=== PATIENT | female | born 1945 | race Caucasian/White ===

== ENCOUNTER 2018-05-06 13:07 | Inpatient (IN) ==
[2018-05-06] MEDS ORDERED: FUROSEMIDE 100 MG/10 ML VIAL IV STA (13:39)
[2018-05-06] MEDS ORDERED: ALBUTEROL/IPRATROPIUM 3 ML NEB RESP TX STA (13:39)
[2018-05-06] MEDS ORDERED: methylPREDNISolone SOD SUC 125 MG/2 ML VIAL IV STA (13:39)
[2018-05-06] MEDS ORDERED: ONDANSETRON 4 MG/2 ML VIAL IV STA (13:39)
[2018-05-06 14:34] LABS: Apearance,Urine CLEAR (Clear); Bacteria,Urine Occasional /HPF (Few); Bilirubin,Urine Negative (Negative); Blood, Urine Small mg/dL (Negative); Glucose,Urine (UA) >=500 mg/dL (Negative); Ketones,Urine Negative (Negative); Mucus,Urine Occasional /LPF (Occasional); Nitrite,Urine Negative (Negative); Protein,Urine Negative; RBC,Urine 1 /HPF (0-4); Squamous Epithelial Cell,Urine Occasional /HPF (0-10); Urine Color Straw (Yellow); Urine Specific Gravity 1.006 (1.001-1.035); Urine Urobilinogen < 2.0 EU/DL (0.2-1.0); WBC,Urine 1 /HPF (0-6)
[2018-05-06 14:47] LABS: Basophils # 0.1 10*3/uL (0.0-0.2); Basophils % 0.6 % (0.0-0.8); Eosinophils % 0.3 % (0.00-10.9); Hemoglobin 13.4 GM/DL (12.0-16.0); Immature Granulocytes % 0.5 %; Immature Granulocytes Absolute 0.06 #; Lymphocytes # 1.3 10*3/uL (1.4-4.0); Lymphocytes % 10.7 % (21.3-54.2); Mean Corpuscular HGB Conc 31.2 GM/DL (32-36); Mean Corpuscular Hemoglobin 28 PG (27-34); Mean Corpuscular Volume 88.5 FL (87-102); Mean Platelet Volume 8.6 FL (9.6-12.0); Monocytes # 0.7 10*3/uL (0.11-0.8); Monocytes % 5.7 % (1.7-12.7); Neutrophils # 10.1 10*3/uL (1.4-7.4); Neutrophils % 82.2 % (38.7-73.9); Platelet Count 304 T/CUMM (130-400); Red Blood Count 4.86 MC/CUMM (3.8-5.5); Red Cell Distribution Width 14.6 % (9.3-17.3); White Blood Count 12.4 T/CUMM (4-12)
[2018-05-06 14:54] LABS: INR 0.9; PT Patient Result 10.3 SECS
[2018-05-06 14:57] LABS: Allen Test Positive
[2018-05-06 14:58] LABS: ABG Base Excess -0.9 MMOL/L (-2.5-2.5); ABG HCO3 23.6 MMOL/L (20-26); ABG Oxygen Saturation 94.5 % (95-100); ABG PCO2 38.1 MM HG (35-48); ABG PO2 73.8 MM HG (80-95); ABG TCO2 20.5 MMOL/L (23-27)
[2018-05-06 15:13] LABS: Albumin 3.4 G/DL (3.4-5.0); Bilirubin,Total 0.8 MG/DL (0.2-1.0); Calcium 9.2 MG/DL (8.5-10.1); Osmolality,Calculated 278.8 MOS/KG (273-304); Potassium 4.3 MMOL/L (3.5-5.1); Total Protein 7.6 G/DL (6.4-8.3)
[2018-05-06] MEDS ORDERED: ENOXAPARIN 100 MG/ML SYRINGE SUBCUT STA (15:47)
[2018-05-06] MEDS ORDERED: MIDAZOLAM 2 MG/2 ML VIAL ONE (16:29)
[2018-05-06] MEDS ORDERED: HYDROmorphone 2 MG/1 ML VIAL ONE (16:29)
[2018-05-06] MEDS ORDERED: ALTEPLASE 6 MG in SODIUM CHLORIDE 0.9% 120 ML IV SCH (16:30)
[2018-05-06] MEDS ORDERED: HEPARIN/NACL 0.9% 2 UNITS/ML 500 ML IV ONE (16:37)
[2018-05-06] MEDS ORDERED: LIDOCAINE 1% 20 ML VIAL ONE (16:37)
[2018-05-06] MEDS ORDERED: MEPERIDINE 25 MG/1 ML VIAL IV PRN (17:07)
[2018-05-06] MEDS ORDERED: LORazepam 2 MG/1 ML VIAL IV PRN (17:07)
[2018-05-06] MEDS ORDERED: LABETALOL 20 MG/4 ML SYRINGE IV ONE (17:13)
[2018-05-06] MEDS ORDERED: SODIUM CHLORIDE 0.9% 1,000 ML IV SCH ×2 (17:30)
[2018-05-06] MEDS ORDERED: HEPARIN DRIP 25,000 UNITS/500 ML PREMIX IV SCH (17:30)
[2018-05-06] MEDS ORDERED: AMITRIPTYLINE 10 MG TABLET PO PRN (17:32)
[2018-05-06] MEDS ORDERED: DIPHENOXYLATE/ATROPINE 2.5-0.025 MG TABLET PO PRN (17:32)
[2018-05-06] MEDS ORDERED: DEXTROSE 50% 25 GM/50 ML SYRINGE IV PRN (17:32)
[2018-05-06] MEDS ORDERED: GLUCAGON 1 MG VIAL IM PRN (17:32)
[2018-05-06] MEDS ORDERED: ONDANSETRON 4 MG/2 ML VIAL IV PRN (17:32)
[2018-05-06] MEDS ORDERED: LOPERAMIDE 2 MG CAPSULE PO PRN (17:32)
[2018-05-06] MEDS ORDERED: POTASSIUM CHLORIDE 10 MEQ TABLET PO PRN (17:32)
[2018-05-06] MEDS ORDERED: FUROSEMIDE 40 MG TABLET PO PRN (17:32)
[2018-05-06] MEDS ORDERED: ACETAMINOPHEN 325 MG TABLET PO PRN (17:32)
[2018-05-06 17:40] LABS: Apearance,Urine CLEAR (Clear); Bilirubin,Urine Negative (Negative); Blood, Urine Small mg/dL (Negative); Glucose,Urine (UA) >=500 mg/dL (Negative); Ketones,Urine Negative (Negative); Nitrite,Urine Negative (Negative); Protein,Urine Negative; RBC,Urine 1 /HPF (0-4); Urine Color Colorless (Yellow); Urine Specific Gravity 1.009 (1.001-1.035); Urine Urobilinogen < 2.0 EU/DL (0.2-1.0); WBC,Urine 1 /HPF (0-6)
[2018-05-06] MEDS: INSULIN REGULAR 100 UNIT/ML SUBCUT SCH (19:01)
[2018-05-06] MEDS: ALBUTEROL/IPRATROPIUM 3 ML NEB RESP TX SCH ×2 (19:18→23:39)
[2018-05-06] MEDS: SODIUM CHLORIDE 0.9% 1,000 ML IV SCH (19:24)
[2018-05-06 19:31] LABS: PT Patient Result 10.7 SECS; Partial Thromboplastin Time 23.5 SECS (0-40)
[2018-05-06] MEDS ORDERED: ENOXAPARIN 40 MG/0.4 ML SYRINGE SUBCUT SCH (21:00)
[2018-05-06] MEDS: FLUTICASONE/SALMETEROL 250-50 DISKUS 14 DOSE INH SCH (21:24)
[2018-05-06] MEDS: CHOLECALCIFEROL 1,000 UNIT TABLET PO SCH (21:25)
[2018-05-06] MEDS: OMEGA 3 ACID ETHYL ESTERS 1 GM CAPSULE PO SCH (21:26)
[2018-05-06] MEDS: GABAPENTIN 300 MG CAPSULE PO SCH (21:26)
[2018-05-06] MEDS: ATORVASTATIN 20 MG TABLET PO SCH (21:26)
[2018-05-06] MEDS: metFORMIN 500 MG TABLET PO SCH (21:26)
[2018-05-06] MEDS: MAGNESIUM CHLORIDE 64 MG TABLET PO SCH (21:26)
[2018-05-06] MEDS: DOCUSATE SODIUM 100 MG CAPSULE PO SCH (21:27)
[2018-05-07] MEDS: MORPHINE 4 MG/1 ML VIAL IV PRN ×2 (00:55→05:08)
[2018-05-07] MEDS: INSULIN REGULAR 100 UNIT/ML SUBCUT SCH ×4 (01:05→17:35)
[2018-05-07] MEDS: ALBUTEROL/IPRATROPIUM 3 ML NEB RESP TX SCH ×6 (02:50→22:49)
[2018-05-07 05:54] LABS: Basophils % 0.1 % (0.0-0.8); Immature Granulocytes % 0.6 %; Immature Granulocytes Absolute 0.07 #; Lymphocytes # 0.6 10*3/uL (1.4-4.0); Lymphocytes % 5.5 % (21.3-54.2); Mean Corpuscular HGB Conc 30.8 GM/DL (32-36); Mean Corpuscular Hemoglobin 27 PG (27-34); Mean Platelet Volume 9.1 FL (9.6-12.0); Monocytes # 0.5 10*3/uL (0.11-0.8); Monocytes % 4.8 % (1.7-12.7); Neutrophils # 9.6 10*3/uL (1.4-7.4); Platelet Count 303 T/CUMM (130-400); Red Blood Count 4.43 MC/CUMM (3.8-5.5); Red Cell Distribution Width 14.5 % (9.3-17.3); White Blood Count 10.8 T/CUMM (4-12)
[2018-05-07 05:57] LABS: PT Patient Result 10.9 SECS
[2018-05-07 06:07] LABS: Alanine Aminotransferase 22 U/L (13-56); Albumin 2.8 G/DL (3.4-5.0); Alkaline Phosphatase 69 U/L (45-117); Aspartate Amino Transferase 14 U/L (0-37); Bilirubin,Total < 0.39 MG/DL (0.2-1.0); Blood Urea Nitrogen 23 MG/DL (7-18); Calcium 8.1 MG/DL (8.5-10.1); Cholesterol 160 MG/DL (50-200); Glucose 225 MG/DL (74-106); HDL Cholesterol 56 MG/DL (40-60); Osmolality,Calculated 289.4 MOS/KG (273-304); Potassium 3.8 MMOL/L (3.5-5.1); Risk Ratio 2.86; Sodium 140 MMOL/L (136-145); Total Protein 6.7 G/DL (6.4-8.3); Triglycerides 110 MG/DL (2-150)
[2018-05-07] MEDS: LEVOTHYROXINE 25 MCG TABLET PO SCH (06:18)
[2018-05-07] MEDS: IPRATROPIUM 500 MCG/2.5 ML NEB RESP TX SCH ×4 (09:42→19:59)
[2018-05-07] MEDS ORDERED: HYDROmorphone 2 MG/1 ML VIAL IV ONE ×2 (09:52→10:11)
[2018-05-07] MEDS ORDERED: HYDROmorphone 2 MG/1 ML VIAL ONE (09:55)
[2018-05-07] MEDS: SODIUM CHLORIDE 0.9% 1,000 ML IV SCH (10:19)
[2018-05-07] MEDS: MAGNESIUM CHLORIDE 64 MG TABLET PO SCH ×2 (10:54→21:10)
[2018-05-07] MEDS: CALCIUM (CARBONATE)/VITAMIN D 600 MG-400 UNIT TABLET PO SCH (10:54)
[2018-05-07] MEDS: CYANOCOBALAMIN 500 MCG TABLET PO SCH (10:54)
[2018-05-07] MEDS: DOCUSATE SODIUM 100 MG CAPSULE PO SCH ×2 (10:55→21:09)
[2018-05-07] MEDS: predniSONE 10 MG TABLET PO SCH (10:55)
[2018-05-07] MEDS: GABAPENTIN 300 MG CAPSULE PO SCH ×2 (10:55→21:10)
[2018-05-07] MEDS: OMEGA 3 ACID ETHYL ESTERS 1 GM CAPSULE PO SCH ×3 (10:55→21:10)
[2018-05-07] MEDS: PANTOPRAZOLE 40 MG VIAL IV SCH (10:56)
[2018-05-07] MEDS: FLUTICASONE/SALMETEROL 250-50 DISKUS 14 DOSE INH SCH ×2 (10:57→21:08)
[2018-05-07] MEDS: APIXABAN 5 MG TABLET PO SCH ×2 (11:07→21:09)
[2018-05-07] MEDS: DAPAGLIFLOZIN PROPANEDIOL 5 MG PO SCH (11:11)
[2018-05-07] MEDS: CHOLECALCIFEROL 1,000 UNIT TABLET PO SCH ×2 (11:12→21:11)
[2018-05-07] MEDS: amLODIPine 5 MG TABLET PO SCH (16:00)
[2018-05-07] MEDS: FUROSEMIDE 40 MG TABLET PO SCH (16:00)
[2018-05-07 18:42] LABS: Partial Thromboplastin Time 25.9 SECS (0-40)
[2018-05-07] MEDS: metFORMIN 500 MG TABLET PO SCH (21:09)
[2018-05-08] MEDS: INSULIN REGULAR 100 UNIT/ML SUBCUT SCH ×4 (00:35→19:38)
[2018-05-08] MEDS: ALBUTEROL/IPRATROPIUM 3 ML NEB RESP TX SCH ×6 (02:23→23:29)
[2018-05-08 05:26] LABS: Calcium 7.7 MG/DL (8.5-10.1); Potassium 3.4 MMOL/L (3.5-5.1)
[2018-05-08] MEDS: LEVOTHYROXINE 25 MCG TABLET PO SCH (06:19)
[2018-05-08] MEDS: IPRATROPIUM 500 MCG/2.5 ML NEB RESP TX SCH ×3 (07:21→15:32)
[2018-05-08] MEDS ORDERED: OXYMETAZOLINE 0.05% NASAL SPRAY 15 ML BOTTLE BOTH NARES PRN (08:22)
[2018-05-08] MEDS ORDERED: POTASSIUM CHLORIDE 20 MEQ TABLET PO ONE (08:43)
[2018-05-08] MEDS ORDERED: MAGNESIUM HYDROXIDE SUSP 30 ML UDCUP PO ONE (10:07)
[2018-05-08] MEDS: amLODIPine 5 MG TABLET PO SCH (10:21)
[2018-05-08] MEDS: predniSONE 10 MG TABLET PO SCH (10:21)
[2018-05-08] MEDS: APIXABAN 5 MG TABLET PO SCH ×2 (10:21→21:45)
[2018-05-08] MEDS: GABAPENTIN 300 MG CAPSULE PO SCH ×2 (10:21→21:46)
[2018-05-08] MEDS: FUROSEMIDE 40 MG TABLET PO SCH (10:22)
[2018-05-08] MEDS: CALCIUM (CARBONATE)/VITAMIN D 600 MG-400 UNIT TABLET PO SCH (10:22)
[2018-05-08] MEDS: OMEGA 3 ACID ETHYL ESTERS 1 GM CAPSULE PO SCH ×3 (10:22→21:46)
[2018-05-08] MEDS: CYANOCOBALAMIN 500 MCG TABLET PO SCH (10:23)
[2018-05-08] MEDS: DOCUSATE SODIUM 100 MG CAPSULE PO SCH ×2 (10:23→21:46)
[2018-05-08] MEDS: MAGNESIUM CHLORIDE 64 MG TABLET PO SCH ×2 (10:23→21:45)
[2018-05-08] MEDS: PANTOPRAZOLE 40 MG VIAL IV SCH (10:24)
[2018-05-08] MEDS: FLUTICASONE 50 MCG NASAL SPRAY 16 GM BOTTLE BOTH NARES SCH (10:28)
[2018-05-08] MEDS: FLUTICASONE/SALMETEROL 250-50 DISKUS 14 DOSE INH SCH ×2 (10:28→21:44)
[2018-05-08] MEDS: CHOLECALCIFEROL 1,000 UNIT TABLET PO SCH ×2 (10:45→21:46)
[2018-05-08] MEDS: METOPROLOL TARTRATE 25 MG TABLET PO SCH ×2 (11:39→21:45)
[2018-05-08] MEDS ORDERED: CLORAZEPATE 3.75 MG TABLET PO PRN (12:55)
[2018-05-08 18:13] LABS: Partial Thromboplastin Time 26.4 SECS (0-40)
[2018-05-08] MEDS: metFORMIN 500 MG TABLET PO SCH (21:44)
[2018-05-08] MEDS: ATORVASTATIN 20 MG TABLET PO SCH (21:46)
[2018-05-08] MEDS: AMITRIPTYLINE 10 MG TABLET PO SCH (21:47)
[2018-05-08] MEDS: CYCLOBENZAPRINE 10 MG TABLET PO SCH (21:47)
[2018-05-09] MEDS: INSULIN REGULAR 100 UNIT/ML SUBCUT SCH ×4 (00:44→17:45)
[2018-05-09] MEDS: ALBUTEROL/IPRATROPIUM 3 ML NEB RESP TX SCH ×6 (03:01→23:55)
[2018-05-09 06:04] LABS: Partial Thromboplastin Time 26.4 SECS (0-40)
[2018-05-09 06:07] LABS: Calcium 8.7 MG/DL (8.5-10.1); Potassium 3.8 MMOL/L (3.5-5.1)
[2018-05-09] MEDS: LEVOTHYROXINE 25 MCG TABLET PO SCH (06:07)
[2018-05-09] MEDS: predniSONE 10 MG TABLET PO SCH (09:44)
[2018-05-09] MEDS: PANTOPRAZOLE 40 MG VIAL IV SCH (09:44)
[2018-05-09] MEDS: CHOLECALCIFEROL 1,000 UNIT TABLET PO SCH ×2 (09:44→20:52)
[2018-05-09] MEDS: CYANOCOBALAMIN 500 MCG TABLET PO SCH (09:44)
[2018-05-09] MEDS: CALCIUM (CARBONATE)/VITAMIN D 600 MG-400 UNIT TABLET PO SCH (09:44)
[2018-05-09] MEDS: OMEGA 3 ACID ETHYL ESTERS 1 GM CAPSULE PO SCH ×3 (09:45→20:53)
[2018-05-09] MEDS: MAGNESIUM CHLORIDE 64 MG TABLET PO SCH ×2 (09:45→20:52)
[2018-05-09] MEDS: DOCUSATE SODIUM 100 MG CAPSULE PO SCH ×2 (09:46→20:52)
[2018-05-09] MEDS: METOPROLOL TARTRATE 25 MG TABLET PO SCH ×2 (09:46→20:52)
[2018-05-09] MEDS: APIXABAN 5 MG TABLET PO SCH ×2 (09:47→20:53)
[2018-05-09] MEDS: FUROSEMIDE 40 MG TABLET PO SCH (09:47)
[2018-05-09] MEDS: GABAPENTIN 300 MG CAPSULE PO SCH ×2 (09:47→20:53)
[2018-05-09] MEDS: CYCLOBENZAPRINE 10 MG TABLET PO SCH ×2 (09:47→20:52)
[2018-05-09] MEDS: amLODIPine 5 MG TABLET PO SCH (09:47)
[2018-05-09] MEDS: FLUTICASONE/SALMETEROL 250-50 DISKUS 14 DOSE INH SCH ×2 (09:48→20:56)
[2018-05-09] MEDS: FLUTICASONE 50 MCG NASAL SPRAY 16 GM BOTTLE BOTH NARES SCH (09:48)
[2018-05-09] MEDS: AZELASTINE NASAL 137 MCG/SPRAY 30 ML BOTTLE BOTH NARES SCH ×2 (09:49→20:58)
[2018-05-09] MEDS: DAPAGLIFLOZIN PROPANEDIOL 5 MG PO SCH (12:20)
[2018-05-09 18:02] LABS: Partial Thromboplastin Time 26.3 SECS (0-40)
[2018-05-09] MEDS: metFORMIN 500 MG TABLET PO SCH (20:52)
[2018-05-10] MEDS: INSULIN REGULAR 100 UNIT/ML SUBCUT SCH ×2 (01:58→06:14)
[2018-05-10] MEDS: AMITRIPTYLINE 10 MG TABLET PO SCH (04:48)
[2018-05-10] MEDS: ALBUTEROL/IPRATROPIUM 3 ML NEB RESP TX SCH ×3 (05:11→11:19)
[2018-05-10] MEDS: LEVOTHYROXINE 25 MCG TABLET PO SCH (06:15)
[2018-05-10] MEDS: METOPROLOL TARTRATE 25 MG TABLET PO SCH (09:06)
[2018-05-10] MEDS: CYCLOBENZAPRINE 10 MG TABLET PO SCH (09:07)
[2018-05-10] MEDS: PANTOPRAZOLE 40 MG VIAL IV SCH (09:08)
[2018-05-10] MEDS: OMEGA 3 ACID ETHYL ESTERS 1 GM CAPSULE PO SCH (09:08)
[2018-05-10] MEDS: CALCIUM (CARBONATE)/VITAMIN D 600 MG-400 UNIT TABLET PO SCH (09:08)
[2018-05-10] MEDS: FUROSEMIDE 40 MG TABLET PO SCH (09:09)
[2018-05-10] MEDS: MAGNESIUM CHLORIDE 64 MG TABLET PO SCH (09:09)
[2018-05-10] MEDS: CYANOCOBALAMIN 500 MCG TABLET PO SCH (09:09)
[2018-05-10] MEDS: GABAPENTIN 300 MG CAPSULE PO SCH (09:10)
[2018-05-10] MEDS: DOCUSATE SODIUM 100 MG CAPSULE PO SCH (09:10)
[2018-05-10] MEDS: APIXABAN 5 MG TABLET PO SCH (09:10)
[2018-05-10] MEDS: FLUTICASONE/SALMETEROL 250-50 DISKUS 14 DOSE INH SCH (09:11)
[2018-05-10] MEDS: amLODIPine 5 MG TABLET PO SCH (09:11)
[2018-05-10] MEDS: AZELASTINE NASAL 137 MCG/SPRAY 30 ML BOTTLE BOTH NARES SCH (09:11)
[2018-05-10] MEDS: FLUTICASONE 50 MCG NASAL SPRAY 16 GM BOTTLE BOTH NARES SCH (09:11)
[2018-05-10] MEDS: DAPAGLIFLOZIN PROPANEDIOL 5 MG PO SCH (09:11)
[2018-05-10] MEDS: predniSONE 10 MG TABLET PO SCH (09:12)
[2018-05-10] MEDS: CHOLECALCIFEROL 1,000 UNIT TABLET PO SCH (09:12)
[2018-05-10 12:12] VITALS: BP 105/63
== END 2018-05-10 12:25 | disposition home health service (06) | DRG 176 ==
LOC: EDUNIT# → EDBD → N.ED 13:07 → N.EDINP 15:49 → N.CC 16:28 → N.TELEN 05-08 13:56
PROVIDERS: ADMIT Family Medicine; ATTEND Family Medicine

== ENCOUNTER 2018-09-09 12:18 | Inpatient (IN) ==
[2018-09-09] MEDS ORDERED: ONDANSETRON 4 MG/2 ML VIAL IV PRN (12:19)
[2018-09-09] MEDS ORDERED: DEXTROSE 50% 25 GM/50 ML VIAL IV PRN (12:19)
[2018-09-09] MEDS ORDERED: GLUCAGON 1 MG VIAL IM PRN (12:19)
[2018-09-09 13:35] LABS: Basophils # 0.1 10*3/uL (0.0-0.2); Basophils % 0.4 % (0.0-0.8); Eosinophils % 0.2 % (0.00-10.9); Hematocrit 39.5 VOL% (35.7-47.0); Hemoglobin 12.2 GM/DL (12.0-16.0); Immature Granulocytes Absolute 0.13 #; Lymphocytes % 7.4 % (21.3-54.2); Mean Corpuscular HGB Conc 30.9 GM/DL (32-36); Mean Corpuscular Hemoglobin 27 PG (27-34); Mean Corpuscular Volume 86.1 FL (87-102); Mean Platelet Volume 8.6 FL (9.6-12.0); Monocytes % 7.5 % (1.7-12.7); Neutrophils # 10.8 10*3/uL (1.4-7.4); Neutrophils % 83.5 % (38.7-73.9); Platelet Count 361 T/CUMM (130-400); Red Blood Count 4.59 MC/CUMM (3.8-5.5); Red Cell Distribution Width 16.4 % (9.3-17.3); White Blood Count 12.9 T/CUMM (4-12)
[2018-09-09 14:11] LABS: Albumin 3.1 G/DL (3.4-5.0); Bilirubin,Total 0.4 MG/DL (0.2-1.0); Calcium 8.8 MG/DL (8.5-10.1); Osmolality,Calculated 277.2 MOS/KG (273-304); Potassium 3.7 MMOL/L (3.5-5.1); Total Protein 7.4 G/DL (6.4-8.3)
[2018-09-09] MEDS: ALBUTEROL/IPRATROPIUM 3 ML NEB RESP TX SCH ×2 (15:15→18:57)
[2018-09-09] MEDS: methylPREDNISolone SOD SUC 40 MG/1 ML VIAL IV SCH (15:45)
[2018-09-09] MEDS ORDERED: ALBUTEROL/IPRATROPIUM 3 ML NEB RESP TX PRN (17:10)
[2018-09-09] MEDS: INSULIN REGULAR 100 UNIT/ML SUBCUT SCH ×2 (19:07→21:22)
[2018-09-09] MEDS: cefTRIAXone 1,000 MG in SYRINGE 1 EACH IV SCH (19:35)
[2018-09-09] MEDS ORDERED: AZELASTINE NASAL 137 MCG/SPRAY 30 ML BOTTLE BOTH NARES PRN (19:51)
[2018-09-09] MEDS ORDERED: POTASSIUM CHLORIDE 10 MEQ TABLET PO PRN (19:51)
[2018-09-09] MEDS ORDERED: AMITRIPTYLINE 10 MG TABLET PO PRN (19:51)
[2018-09-09] MEDS ORDERED: FUROSEMIDE 40 MG TABLET PO PRN (19:51)
[2018-09-09] MEDS ORDERED: DIPHENOXYLATE/ATROPINE 2.5-0.025 MG TABLET PO PRN (19:51)
[2018-09-09] MEDS: MONTELUKAST 10 MG TABLET PO SCH (20:50)
[2018-09-09] MEDS: MAGNESIUM CHLORIDE 64 MG TABLET PO SCH (20:50)
[2018-09-09] MEDS: DICLOFENAC 1.3% PATCH 5/PACK TRANSDERM SCH (20:50)
[2018-09-09] MEDS: metFORMIN 500 MG TABLET PO SCH (20:50)
[2018-09-09] MEDS: OMEGA 3 ACID ETHYL ESTERS 1 GM CAPSULE PO SCH (20:51)
[2018-09-09] MEDS: APIXABAN 5 MG TABLET PO SCH (20:51)
[2018-09-09] MEDS: CHOLECALCIFEROL 1,000 UNIT TABLET PO SCH (20:51)
[2018-09-09] MEDS: GABAPENTIN 300 MG CAPSULE PO SCH (20:51)
[2018-09-09] MEDS: DOCUSATE SODIUM 100 MG CAPSULE PO SCH (20:52)
[2018-09-09] MEDS: SODIUM CHLORIDE 0.9% 1,000 ML IV SCH (21:23)
[2018-09-10] MEDS: methylPREDNISolone SOD SUC 40 MG/1 ML VIAL IV SCH ×3 (01:01→23:49)
[2018-09-10] MEDS: ALBUTEROL/IPRATROPIUM 3 ML NEB RESP TX SCH ×4 (01:28→20:28)
[2018-09-10 05:07] LABS: Basophils % 0.2 % (0.0-0.8); Hematocrit 36.2 VOL% (35.7-47.0); Immature Granulocytes % 0.8 %; Immature Granulocytes Absolute 0.08 #; Lymphocytes # 0.7 10*3/uL (1.4-4.0); Lymphocytes % 6.6 % (21.3-54.2); Mean Corpuscular HGB Conc 30.4 GM/DL (32-36); Mean Corpuscular Hemoglobin 26 PG (27-34); Mean Corpuscular Volume 86.8 FL (87-102); Mean Platelet Volume 8.7 FL (9.6-12.0); Monocytes # 0.4 10*3/uL (0.11-0.8); Monocytes % 3.8 % (1.7-12.7); Neutrophils # 9.2 10*3/uL (1.4-7.4); Neutrophils % 88.6 % (38.7-73.9); Platelet Count 349 T/CUMM (130-400); Red Blood Count 4.17 MC/CUMM (3.8-5.5); White Blood Count 10.4 T/CUMM (4-12)
[2018-09-10 05:30] LABS: Calcium 8.5 MG/DL (8.5-10.1); Osmolality,Calculated 285.7 MOS/KG (273-304); Potassium 4.2 MMOL/L (3.5-5.1)
[2018-09-10 05:39] LABS: Free T4 (Free Thyroxine) 0.96 NG/DL (0.76-1.46); Thyroid Stimulating Hormone 0.468 uIU/ml (0.358-3.74)
[2018-09-10] MEDS: LEVOTHYROXINE 25 MCG TABLET PO SCH (06:20)
[2018-09-10] MEDS: INSULIN REGULAR 100 UNIT/ML SUBCUT SCH ×4 (08:18→21:12)
[2018-09-10] MEDS: MAGNESIUM CHLORIDE 64 MG TABLET PO SCH ×2 (08:18→21:11)
[2018-09-10] MEDS: CALCIUM (CARBONATE)/VITAMIN D 600 MG-400 UNIT TABLET PO SCH (08:18)
[2018-09-10] MEDS: PANTOPRAZOLE 40 MG TABLET PO SCH (08:19)
[2018-09-10] MEDS: GABAPENTIN 300 MG CAPSULE PO SCH ×2 (08:19→21:11)
[2018-09-10] MEDS: OMEGA 3 ACID ETHYL ESTERS 1 GM CAPSULE PO SCH ×3 (08:19→21:11)
[2018-09-10] MEDS: LACTOBACILLUS ACIDOPHILUS/BULGARICUS CAPLET PO SCH (08:19)
[2018-09-10] MEDS: MONTELUKAST 10 MG TABLET PO SCH ×2 (08:19→21:11)
[2018-09-10] MEDS: DOCUSATE SODIUM 100 MG CAPSULE PO SCH ×2 (08:19→21:13)
[2018-09-10] MEDS: CHOLECALCIFEROL 1,000 UNIT TABLET PO SCH ×2 (08:19→21:11)
[2018-09-10] MEDS: APIXABAN 5 MG TABLET PO SCH ×2 (08:19→21:12)
[2018-09-10] MEDS ORDERED: NON-FORMULARY MEDICATION (Tiotropium Inhalation 18 MCG) INH SCH (09:00)
[2018-09-10] MEDS: metFORMIN 500 MG TABLET PO SCH ×2 (10:20→21:12)
[2018-09-10] MEDS: FLUTICASONE/SALMETEROL 250-50 DISKUS 14 DOSE INH SCH (10:20)
[2018-09-10 10:21] LABS: Apearance,Urine CLEAR (Clear); Bilirubin,Urine Negative (Negative); Blood, Urine Small mg/dL (Negative); Glucose,Urine (UA) >=500 mg/dL (Negative); Ketones,Urine Negative (Negative); Nitrite,Urine Negative (Negative); Protein,Urine Negative; RBC,Urine 1 /HPF (0-4); Urine Color Straw (Yellow); Urine Specific Gravity 1.012 (1.001-1.035); Urine Urobilinogen < 2.0 EU/DL (0.2-1.0); WBC,Urine 1 /HPF (0-6)
[2018-09-10] MEDS: DEXTROMETHORPHAN ER 6 MG/ML 90 ML/BOTTLE PO PRN ×2 (10:21→21:15)
[2018-09-10] MEDS: DICLOFENAC 1.3% PATCH 5/PACK TRANSDERM SCH ×2 (10:21→21:13)
[2018-09-10] MEDS: cefTRIAXone 1,000 MG in SYRINGE 1 EACH IV SCH (18:16)
[2018-09-10] MEDS ORDERED: BENZOCAINE/MENTHOL LOZENGE 18/BOX PO PRN (18:16)
[2018-09-10] MEDS: ACETAMINOPHEN 325 MG TABLET PO PRN (21:10)
[2018-09-11] MEDS: SODIUM CHLORIDE 0.9% 1,000 ML IV SCH ×2 (01:00→12:43)
[2018-09-11] MEDS: ALBUTEROL/IPRATROPIUM 3 ML NEB RESP TX SCH ×4 (01:38→19:36)
[2018-09-11] MEDS: DEXTROMETHORPHAN ER 6 MG/ML 90 ML/BOTTLE PO PRN (03:01)
[2018-09-11] MEDS: LEVOTHYROXINE 25 MCG TABLET PO SCH (05:41)
[2018-09-11] MEDS: DOCUSATE SODIUM 100 MG CAPSULE PO SCH ×2 (08:49→21:02)
[2018-09-11] MEDS: DICLOFENAC 1.3% PATCH 5/PACK TRANSDERM SCH ×2 (08:49→21:02)
[2018-09-11] MEDS: PANTOPRAZOLE 40 MG TABLET PO SCH (08:53)
[2018-09-11] MEDS: LACTOBACILLUS ACIDOPHILUS/BULGARICUS CAPLET PO SCH (08:53)
[2018-09-11] MEDS: MONTELUKAST 10 MG TABLET PO SCH ×2 (08:53→20:48)
[2018-09-11] MEDS: MAGNESIUM CHLORIDE 64 MG TABLET PO SCH ×2 (08:53→20:48)
[2018-09-11] MEDS: APIXABAN 5 MG TABLET PO SCH ×2 (08:53→20:48)
[2018-09-11] MEDS: GABAPENTIN 300 MG CAPSULE PO SCH ×2 (08:53→20:49)
[2018-09-11] MEDS: CHOLECALCIFEROL 1,000 UNIT TABLET PO SCH ×2 (08:53→20:58)
[2018-09-11] MEDS: OMEGA 3 ACID ETHYL ESTERS 1 GM CAPSULE PO SCH ×3 (08:53→20:49)
[2018-09-11] MEDS: FLUTICASONE/SALMETEROL 250-50 DISKUS 14 DOSE INH SCH (08:54)
[2018-09-11] MEDS: INSULIN REGULAR 100 UNIT/ML SUBCUT SCH ×4 (08:54→20:59)
[2018-09-11] MEDS: LORATADINE 10 MG TABLET PO SCH (08:54)
[2018-09-11] MEDS: metFORMIN 500 MG TABLET PO SCH ×2 (08:54→20:49)
[2018-09-11] MEDS: CALCIUM (CARBONATE)/VITAMIN D 600 MG-400 UNIT TABLET PO SCH (08:55)
[2018-09-11] MEDS ORDERED: ATORVASTATIN 20 MG TABLET PO SCH (09:00)
[2018-09-11] MEDS: ACETAMINOPHEN 325 MG TABLET PO PRN ×2 (09:12→20:50)
[2018-09-11] MEDS: INSULIN GLARGINE 100 UNIT/ML SUBCUT SCH (10:45)
[2018-09-11] MEDS: methylPREDNISolone SOD SUC 40 MG/1 ML VIAL IV SCH (12:42)
[2018-09-11] MEDS: cefTRIAXone 1,000 MG in SYRINGE 1 EACH IV SCH (16:31)
[2018-09-12] MEDS: methylPREDNISolone SOD SUC 40 MG/1 ML VIAL IV SCH (00:27)
[2018-09-12] MEDS: ALBUTEROL/IPRATROPIUM 3 ML NEB RESP TX SCH ×2 (00:49→08:01)
[2018-09-12] MEDS: LEVOTHYROXINE 25 MCG TABLET PO SCH (06:23)
[2018-09-12 08:50] VITALS: BP 154/109
[2018-09-12] MEDS: INSULIN REGULAR 100 UNIT/ML SUBCUT SCH (08:52)
[2018-09-12] MEDS: INSULIN GLARGINE 100 UNIT/ML SUBCUT SCH (08:52)
[2018-09-12] MEDS: PANTOPRAZOLE 40 MG TABLET PO SCH (08:53)
[2018-09-12] MEDS: LORATADINE 10 MG TABLET PO SCH (08:53)
[2018-09-12] MEDS: MAGNESIUM CHLORIDE 64 MG TABLET PO SCH (08:53)
[2018-09-12] MEDS: metFORMIN 500 MG TABLET PO SCH (08:53)
[2018-09-12] MEDS: MONTELUKAST 10 MG TABLET PO SCH (08:53)
[2018-09-12] MEDS: CHOLECALCIFEROL 1,000 UNIT TABLET PO SCH (08:53)
[2018-09-12] MEDS: OMEGA 3 ACID ETHYL ESTERS 1 GM CAPSULE PO SCH (08:53)
[2018-09-12] MEDS: LACTOBACILLUS ACIDOPHILUS/BULGARICUS CAPLET PO SCH (08:53)
[2018-09-12] MEDS: DICLOFENAC 1.3% PATCH 5/PACK TRANSDERM SCH (08:54)
[2018-09-12] MEDS: APIXABAN 5 MG TABLET PO SCH (08:54)
[2018-09-12] MEDS: CALCIUM (CARBONATE)/VITAMIN D 600 MG-400 UNIT TABLET PO SCH (08:54)
[2018-09-12] MEDS: DOCUSATE SODIUM 100 MG CAPSULE PO SCH (08:54)
[2018-09-12] MEDS: GABAPENTIN 300 MG CAPSULE PO SCH (08:54)
[2018-09-12] MEDS: FLUTICASONE/SALMETEROL 250-50 DISKUS 14 DOSE INH SCH (08:54)
== END 2018-09-12 10:45 | disposition home or self-care (01) | DRG 202 ==
LOC: N.5E 12:38
PROVIDERS: ADMIT Family Medicine; ATTEND Family Medicine

== ENCOUNTER 2019-01-03 13:03 | Inpatient (IN) ==
[2019-01-03] MEDS ORDERED: FUROSEMIDE 40 MG/4 ML VIAL IV STA (13:37)
[2019-01-03 13:53] LABS: Basophils % 0.5 % (0.0-0.8); Eosinophils % 0.2 % (0.00-10.9); Hemoglobin 11.6 GM/DL (12.0-16.0); Immature Granulocytes % 0.3 %; Immature Granulocytes Absolute 0.03 #; Lymphocytes # 0.9 10*3/uL (1.4-4.0); Mean Corpuscular HGB Conc 30.5 GM/DL (32-36); Mean Corpuscular Volume 89.2 FL (87-102); Mean Platelet Volume 8.4 FL (9.6-12.0); Monocytes % 4.1 % (1.7-12.7); Neutrophils % 83.9 % (38.7-73.9); Platelet Count 320 T/CUMM (130-400); Red Blood Count 4.26 MC/CUMM (3.8-5.5); Red Cell Distribution Width 14.6 % (9.3-17.3); White Blood Count 8.6 T/CUMM (4-12)
[2019-01-03] MEDS: ALBUTEROL 2.5 MG/3 ML NEB RESP TX SCH (14:15)
[2019-01-03 14:16] LABS: Alanine Aminotransferase 34 U/L (13-56); Albumin 3.3 G/DL (3.4-5.0); Alkaline Phosphatase 60 U/L (45-117); Aspartate Amino Transferase 24 U/L (0-37); Bilirubin,Total < 0.39 MG/DL (0.2-1.0); Blood Urea Nitrogen 27 MG/DL (7-18); Glucose 229 MG/DL (74-106); Osmolality,Calculated 288.5 MOS/KG (273-304); Total Protein 6.6 G/DL (6.4-8.3)
[2019-01-03 14:44] LABS: Apearance,Urine CLEAR (Clear); Bilirubin,Urine Negative (Negative); Blood, Urine Small mg/dL (Negative); Glucose,Urine (UA) 50 mg/dL (Negative); Hyaline Casts,Urine 4 /LPF (0-3); Ketones,Urine Negative (Negative); Nitrite,Urine Negative (Negative); Protein,Urine Negative; RBC,Urine <1 /HPF (0-4); Squamous Epithelial Cell,Urine Occasional /HPF (0-10); Urine Color Yellow (Yellow); Urine Specific Gravity 1.012 (1.001-1.035); Urine Urobilinogen < 2.0 EU/DL (0.2-1.0)
[2019-01-03] MEDS ORDERED: SODIUM CHLORIDE 0.9% 500 ML IV STA (15:41)
[2019-01-03] MEDS ORDERED: LEVOFLOXACIN INJ 500 MG in PREMIX 1 EACH IV STA (16:20)
[2019-01-03] MEDS ORDERED: MORPHINE 4 MG/1 ML VIAL IV PRN (16:22)
[2019-01-03] MEDS ORDERED: ACETAMINOPHEN 325 MG TABLET PO PRN (16:22)
[2019-01-03] MEDS ORDERED: ONDANSETRON 4 MG/2 ML VIAL IV PRN (16:22)
[2019-01-03] MEDS ORDERED: SODIUM CHLORIDE 0.9% 1,000 ML IV STA (17:34)
[2019-01-03] MEDS ORDERED: CLORAZEPATE 3.75 MG TABLET PO PRN (18:10)
[2019-01-03] MEDS ORDERED: ALBUTEROL 2.5 MG/3 ML NEB RESP TX PRN (18:10)
[2019-01-03] MEDS ORDERED: ATORVASTATIN 20 MG TABLET PO SCH (18:10)
[2019-01-03] MEDS ORDERED: ALBUTEROL 2.5 MG/3 ML NEB RESP TX SCH (19:00)
[2019-01-03] MEDS ORDERED: GLUCAGON 1 MG VIAL IM PRN (19:15)
[2019-01-03] MEDS ORDERED: DEXTROSE 50% 25 GM/50 ML VIAL IV PRN (19:15)
[2019-01-03] MEDS: SODIUM CHLORIDE 0.9% 1,000 ML IV SCH (19:21)
[2019-01-03] MEDS: INSULIN REGULAR 100 UNIT/ML SUBCUT SCH (22:04)
[2019-01-03] MEDS: CHOLECALCIFEROL 1,000 UNIT TABLET PO SCH (22:06)
[2019-01-03] MEDS: METOPROLOL TARTRATE 25 MG TABLET PO SCH (22:06)
[2019-01-03] MEDS: MAGNESIUM CHLORIDE 64 MG TABLET PO SCH (22:06)
[2019-01-03] MEDS: GABAPENTIN 300 MG CAPSULE PO SCH (22:07)
[2019-01-03] MEDS: OMEGA 3 ACID ETHYL ESTERS 1 GM CAPSULE PO SCH (22:07)
[2019-01-03] MEDS: POLYCARBOPHIL 625 MG TABLET PO SCH (22:07)
[2019-01-03] MEDS: CALCIUM (CARBONATE)/VITAMIN D 600 MG-400 UNIT TABLET PO SCH (22:07)
[2019-01-03] MEDS: ALLOPURINOL 100 MG TABLET PO SCH (22:08)
[2019-01-03] MEDS: DOCUSATE SODIUM 100 MG CAPSULE PO SCH (22:08)
[2019-01-03] MEDS: APIXABAN 2.5 MG TABLET PO SCH (22:08)
[2019-01-03] MEDS: ALPRAZolam 0.25 MG TABLET PO SCH (22:11)
[2019-01-04] MEDS: ALBUTEROL/IPRATROPIUM 3 ML NEB RESP TX SCH ×4 (00:45→18:49)
[2019-01-04 01:06] LABS: Basophils % 0.5 % (0.0-0.8); Eosinophils # 0.1 10*3/uL (0.0-0.87); Eosinophils % 0.7 % (0.00-10.9); Hematocrit 34.1 VOL% (35.7-47.0); Hemoglobin 10.7 GM/DL (12.0-16.0); Immature Granulocytes % 0.4 %; Immature Granulocytes Absolute 0.03 #; Lymphocytes # 1.5 10*3/uL (1.4-4.0); Lymphocytes % 19.1 % (21.3-54.2); Mean Corpuscular HGB Conc 31.4 GM/DL (32-36); Mean Corpuscular Volume 88.6 FL (87-102); Mean Platelet Volume 8.8 FL (9.6-12.0); Monocytes % 13.7 % (1.7-12.7); Neutrophils % 65.6 % (38.7-73.9); Platelet Count 309 T/CUMM (130-400); Red Blood Count 3.85 MC/CUMM (3.8-5.5); Red Cell Distribution Width 14.7 % (9.3-17.3); White Blood Count 7.7 T/CUMM (4-12)
[2019-01-04 01:20] LABS: Calcium 8.1 MG/DL (8.5-10.1)
[2019-01-04 01:27] LABS: Risk Ratio 2.89; VLDL CHOLESTEROL 30.4 MG/DL
[2019-01-04] MEDS: SODIUM CHLORIDE 0.9% 1,000 ML IV SCH ×2 (01:33→16:42)
[2019-01-04] MEDS ORDERED: IPRATROPIUM 500 MCG/2.5 ML NEB RESP TX SCH (07:00)
[2019-01-04] MEDS ORDERED: POTASSIUM CHLORIDE 10 MEQ TABLET PO SCH (09:00)
[2019-01-04] MEDS ORDERED: FUROSEMIDE 40 MG TABLET PO SCH (09:00)
[2019-01-04] MEDS: MELOXICAM 7.5 MG TABLET PO SCH (09:36)
[2019-01-04] MEDS: METOPROLOL TARTRATE 25 MG TABLET PO SCH ×2 (09:36→20:50)
[2019-01-04] MEDS: ALLOPURINOL 100 MG TABLET PO SCH ×2 (09:37→20:51)
[2019-01-04] MEDS: CHOLECALCIFEROL 1,000 UNIT TABLET PO SCH ×2 (09:37→20:50)
[2019-01-04] MEDS: ALPRAZolam 0.25 MG TABLET PO SCH ×2 (09:37→20:50)
[2019-01-04] MEDS: APIXABAN 2.5 MG TABLET PO SCH ×2 (09:37→20:51)
[2019-01-04] MEDS: PANTOPRAZOLE 40 MG TABLET PO SCH (09:37)
[2019-01-04] MEDS: GABAPENTIN 300 MG CAPSULE PO SCH ×2 (09:37→20:51)
[2019-01-04] MEDS: OMEGA 3 ACID ETHYL ESTERS 1 GM CAPSULE PO SCH ×3 (09:38→20:51)
[2019-01-04] MEDS: MAGNESIUM CHLORIDE 64 MG TABLET PO SCH ×2 (09:38→20:50)
[2019-01-04] MEDS: DOCUSATE SODIUM 100 MG CAPSULE PO SCH ×2 (09:38→20:49)
[2019-01-04] MEDS: LEVOTHYROXINE 25 MCG TABLET PO SCH (09:38)
[2019-01-04] MEDS: predniSONE 10 MG TABLET PO SCH (09:39)
[2019-01-04] MEDS: sitaGLIPtin 100 MG TABLET PO SCH (09:39)
[2019-01-04] MEDS: POLYCARBOPHIL 625 MG TABLET PO SCH ×2 (09:39→20:50)
[2019-01-04] MEDS: FLUTICASONE/SALMETEROL 250-50 DISKUS 14 DOSE INH SCH (09:40)
[2019-01-04] MEDS: FUROSEMIDE 20 MG/2 ML VIAL IV SCH (09:40)
[2019-01-04] MEDS: INSULIN REGULAR 100 UNIT/ML SUBCUT SCH ×4 (09:43→21:46)
[2019-01-04] MEDS: CHOLESTYRAMINE 4 GM PACK PO SCH (09:44)
[2019-01-04] MEDS: DIPHENOXYLATE/ATROPINE 2.5-0.025 MG TABLET PO PRN (10:29)
[2019-01-04] MEDS: CALCIUM (CARBONATE)/VITAMIN D 600 MG-400 UNIT TABLET PO SCH (20:50)
[2019-01-05] MEDS: ALBUTEROL/IPRATROPIUM 3 ML NEB RESP TX SCH ×3 (01:05→19:04)
[2019-01-05] MEDS: SODIUM CHLORIDE 0.9% 1,000 ML IV SCH (06:07)
[2019-01-05] MEDS: INSULIN REGULAR 100 UNIT/ML SUBCUT SCH ×4 (07:22→20:47)
[2019-01-05] MEDS: POLYCARBOPHIL 625 MG TABLET PO SCH ×2 (09:10→20:40)
[2019-01-05] MEDS: METOPROLOL TARTRATE 25 MG TABLET PO SCH ×2 (09:11→20:41)
[2019-01-05] MEDS: sitaGLIPtin 100 MG TABLET PO SCH (09:13)
[2019-01-05] MEDS: predniSONE 10 MG TABLET PO SCH (09:13)
[2019-01-05] MEDS: MAGNESIUM CHLORIDE 64 MG TABLET PO SCH ×2 (09:13→20:41)
[2019-01-05] MEDS: CHOLECALCIFEROL 1,000 UNIT TABLET PO SCH ×2 (09:14→20:41)
[2019-01-05] MEDS: PANTOPRAZOLE 40 MG TABLET PO SCH (09:15)
[2019-01-05] MEDS: ALPRAZolam 0.25 MG TABLET PO SCH ×2 (09:15→20:40)
[2019-01-05] MEDS: GABAPENTIN 300 MG CAPSULE PO SCH ×2 (09:15→20:40)
[2019-01-05] MEDS: APIXABAN 2.5 MG TABLET PO SCH ×2 (09:15→20:41)
[2019-01-05] MEDS: LEVOTHYROXINE 25 MCG TABLET PO SCH (09:15)
[2019-01-05] MEDS: ALLOPURINOL 100 MG TABLET PO SCH ×2 (09:15→20:44)
[2019-01-05] MEDS: OMEGA 3 ACID ETHYL ESTERS 1 GM CAPSULE PO SCH ×3 (09:16→20:40)
[2019-01-05] MEDS: CHOLESTYRAMINE 4 GM PACK PO SCH (09:16)
[2019-01-05] MEDS: MELOXICAM 7.5 MG TABLET PO SCH (09:16)
[2019-01-05] MEDS: POTASSIUM CHLORIDE 20 MEQ TABLET PO SCH (09:16)
[2019-01-05] MEDS: DOCUSATE SODIUM 100 MG CAPSULE PO SCH ×2 (09:23→20:45)
[2019-01-05] MEDS: FUROSEMIDE 20 MG/2 ML VIAL IV SCH ×2 (09:23→16:04)
[2019-01-05] MEDS: FLUTICASONE/SALMETEROL 250-50 DISKUS 14 DOSE INH SCH (09:23)
[2019-01-05] MEDS ORDERED: MAGNESIUM SULF RIDER 2 GM in PREMIX 1 EACH IV ONE (15:19)
[2019-01-05] MEDS: LIDOCAINE 5% PATCH TRANSDERM SCH (16:06)
[2019-01-05 16:20] LABS: Calcium 8.5 MG/DL (8.5-10.1); Osmolality,Calculated 293.1 MOS/KG (273-304)
[2019-01-05] MEDS: CALCIUM (CARBONATE)/VITAMIN D 600 MG-400 UNIT TABLET PO SCH (20:41)
[2019-01-06] MEDS: ALBUTEROL/IPRATROPIUM 3 ML NEB RESP TX SCH ×3 (00:30→08:01)
[2019-01-06 05:46] LABS: Basophils # 0.1 10*3/uL (0.0-0.2); Basophils % 0.7 % (0.0-0.8); Eosinophils # 0.1 10*3/uL (0.0-0.87); Eosinophils % 1.9 % (0.00-10.9); Hematocrit 34.2 VOL% (35.7-47.0); Hemoglobin 10.1 GM/DL (12.0-16.0); Immature Granulocytes % 0.5 %; Immature Granulocytes Absolute 0.04 #; Lymphocytes # 1.3 10*3/uL (1.4-4.0); Lymphocytes % 17.1 % (21.3-54.2); Mean Corpuscular HGB Conc 29.5 GM/DL (32-36); Mean Corpuscular Volume 91.7 FL (87-102); Mean Platelet Volume 8.5 FL (9.6-12.0); Monocytes % 10.3 % (1.7-12.7); Neutrophils % 69.5 % (38.7-73.9); Platelet Count 291 T/CUMM (130-400); Red Blood Count 3.73 MC/CUMM (3.8-5.5); Red Cell Distribution Width 14.9 % (9.3-17.3); White Blood Count 7.3 T/CUMM (4-12)
[2019-01-06 06:05] LABS: Calcium 8.3 MG/DL (8.5-10.1); Osmolality,Calculated 290.7 MOS/KG (273-304)
[2019-01-06] MEDS: INSULIN REGULAR 100 UNIT/ML SUBCUT SCH ×2 (08:39→11:44)
[2019-01-06] MEDS: POLYCARBOPHIL 625 MG TABLET PO SCH (08:50)
[2019-01-06] MEDS: CHOLECALCIFEROL 1,000 UNIT TABLET PO SCH (08:50)
[2019-01-06] MEDS: DIPHENOXYLATE/ATROPINE 2.5-0.025 MG TABLET PO PRN (08:51)
[2019-01-06] MEDS: MELOXICAM 7.5 MG TABLET PO SCH (08:51)
[2019-01-06] MEDS: OMEGA 3 ACID ETHYL ESTERS 1 GM CAPSULE PO SCH (08:51)
[2019-01-06] MEDS: LEVOTHYROXINE 25 MCG TABLET PO SCH (08:51)
[2019-01-06] MEDS: GABAPENTIN 300 MG CAPSULE PO SCH (08:51)
[2019-01-06] MEDS: MAGNESIUM CHLORIDE 64 MG TABLET PO SCH (08:52)
[2019-01-06] MEDS: METOPROLOL TARTRATE 25 MG TABLET PO SCH (08:52)
[2019-01-06] MEDS: DOCUSATE SODIUM 100 MG CAPSULE PO SCH (08:52)
[2019-01-06] MEDS: APIXABAN 2.5 MG TABLET PO SCH (08:52)
[2019-01-06] MEDS: predniSONE 10 MG TABLET PO SCH (08:52)
[2019-01-06] MEDS: ALPRAZolam 0.25 MG TABLET PO SCH (08:52)
[2019-01-06] MEDS: ALLOPURINOL 100 MG TABLET PO SCH (08:52)
[2019-01-06] MEDS: sitaGLIPtin 100 MG TABLET PO SCH (08:52)
[2019-01-06] MEDS: POTASSIUM CHLORIDE 20 MEQ TABLET PO SCH (08:52)
[2019-01-06] MEDS: PANTOPRAZOLE 40 MG TABLET PO SCH (08:53)
[2019-01-06] MEDS: FUROSEMIDE 20 MG/2 ML VIAL IV SCH (08:53)
[2019-01-06] MEDS: FLUTICASONE/SALMETEROL 250-50 DISKUS 14 DOSE INH SCH (08:58)
[2019-01-06] MEDS: LIDOCAINE 5% PATCH TRANSDERM SCH (08:58)
[2019-01-06] MEDS: CHOLESTYRAMINE 4 GM PACK PO SCH (08:59)
[2019-01-06] MEDS ORDERED: POTASSIUM CHLORIDE 20 MEQ TABLET PO ONE (09:41)
[2019-01-06] MEDS ORDERED: MAGNESIUM SULF RIDER 1 GM in PREMIX 1 EACH IV ONE (10:00)
[2019-01-06] MEDS ORDERED: MAGNESIUM CHLORIDE 64 MG TABLET PO ONE (11:00)
[2019-01-06 11:46] VITALS: BP 140/97
== END 2019-01-06 12:25 | disposition home or self-care (01) | DRG 191 ==
LOC: N.ED 13:03 → N.EDINP 16:22 → N.2E 16:48
PROVIDERS: ADMIT Family Medicine; ATTEND Family Medicine

== ENCOUNTER 2021-03-25 03:52 | Inpatient (IN) ==
[2021-03-25] MEDS ORDERED: methylPREDNISolone SOD SUC 125 MG/2 ML VIAL IV STA (04:11)
[2021-03-25] MEDS ORDERED: ALBUTEROL/IPRATROPIUM 3 ML NEB RESP TX STA (04:11)
[2021-03-25 05:44] LABS: Bilirubin,Urine Negative (Negative); Blood, Urine Small mg/dL (Negative); Glucose,Urine (UA) Negative (Negative); Ketones,Urine 5 mg/dL (Negative); Nitrite,Urine Negative (Negative); Protein,Urine 100 MG/DL; RBC,Urine 8 /HPF (0-4); Urine Appearance CLOUDY (Clear); Urine Color Yellow (Yellow); Urine Specific Gravity 1.014 (1.001-1.035); Urine Urobilinogen < 2.0 EU/DL (0.2-1.0)
[2021-03-25 05:47] LABS: Barbiturates Screen,Urine Negative (Negative); Benzodiazepines Screen,Urine Negative (Negative); Cannabinoid Screen,Urine Negative (Negative); Opiate Screen,Urine Negative (Negative); Phencyclidine Screen,Urine Negative (Negative)
[2021-03-25] MEDS ORDERED: LEVOFLOXACIN INJ 500 MG/100 ML PREMIX IV STA (05:49)
[2021-03-25 05:58] LABS: INR 1.1; PT Patient Result 12.4 SECS (10.5-12.0)
[2021-03-25 06:10] LABS: Alanine Aminotransferase 18 U/L (13-56); Alkaline Phosphatase 63 U/L (45-117); Aspartate Amino Transferase 21 U/L (0-37); Blood Urea Nitrogen 38 MG/DL (7-18); Calcium 8.4 MG/DL (8.5-10.1); Carbon Dioxide 25 MMOL/L (21-32); Estimated Glom Filtration Rate 41 ML/MIN; Glucose 134 MG/DL (74-106); Osmolality,Calculated 278.2 MOS/KG (273-304); Potassium 3.8 MMOL/L (3.5-5.1); Sodium 134 MMOL/L (136-145); Total Protein 6.3 G/DL (6.4-8.2)
[2021-03-25 06:35] LABS: Basophils % 0.4 % (0.0-0.8); Hematocrit 29.9 VOL% (35.7-47.0); Hemoglobin 9.8 GM/DL (12.0-16.0); Immature Granulocytes Absolute 0.05 #; Lymphocytes # 0.6 10*3/uL (1.4-4.0); Lymphocytes % 12.2 % (21.3-54.2); Mean Corpuscular HGB Conc 32.8 GM/DL (32-36); Mean Corpuscular Volume 90.9 FL (87-102); Mean Platelet Volume 8.6 FL (9.6-12.0); Monocytes % 5.7 % (1.7-12.7); Neutrophils % 80.7 % (38.7-73.9); Platelet Count 102 T/CUMM (130-400); Red Blood Count 3.29 MC/CUMM (3.8-5.5); Red Cell Distribution Width 14.6 % (9.3-17.3); White Blood Count 5.1 T/CUMM (4-12)
[2021-03-25 06:54] LABS: Band Neutrophils 1 % (0-10); Eosinophils 1 % (0-10); Lymphocytes 10 % (20-55); Platelet Estimate Adequate; Segmented Neutrophils 84 % (50-85); Total Cells Counted 100
[2021-03-25 06:55] LABS: Hypochromasia Slight
[2021-03-25] MEDS ORDERED: ACETAMINOPHEN 325 MG TABLET PO PRN (08:05)
[2021-03-25] MEDS ORDERED: ONDANSETRON 4 MG/2 ML VIAL IV PRN (08:05)
[2021-03-25] MEDS: SODIUM CHLORIDE 0.45% 1,000 ML IV SCH (09:08)
[2021-03-25] MEDS ORDERED: ALBUTEROL 2.5 MG/3 ML NEB RESP TX PRN (09:20)
[2021-03-25] MEDS ORDERED: DEXTROSE 50% 25 GM/50 ML VIAL IV PRN (09:53)
[2021-03-25] MEDS ORDERED: GLUCAGON 1 MG VIAL IM PRN (09:53)
[2021-03-25] MEDS: DOCUSATE SODIUM 100 MG CAPSULE PO SCH ×2 (10:39→21:07)
[2021-03-25] MEDS: predniSONE 10 MG TABLET PO SCH (10:40)
[2021-03-25] MEDS: PANTOPRAZOLE 40 MG TABLET PO SCH (10:40)
[2021-03-25] MEDS: ATORVASTATIN 10 MG TABLET PO SCH (10:40)
[2021-03-25] MEDS: GABAPENTIN 300 MG CAPSULE PO SCH ×2 (10:40→21:07)
[2021-03-25] MEDS: IPRATROPIUM 500 MCG/2.5 ML NEB RESP TX SCH ×3 (11:20→20:11)
[2021-03-25] MEDS: APIXABAN 2.5 MG TABLET PO SCH ×2 (11:44→21:07)
[2021-03-25] MEDS: sitaGLIPtin 25 MG TABLET PO SCH (11:45)
[2021-03-25] MEDS: cefTRIAXone 1,000 MG in SODIUM CHLORIDE 0.9% 100 ML IV SCH (11:49)
[2021-03-25] MEDS ORDERED: MAGNESIUM SULF RIDER 2 GM/50 ML PREMIX IV ONE (15:00)
[2021-03-25] MEDS ORDERED: AMITRIPTYLINE 10 MG TABLET PO PRN (18:00)
[2021-03-26] MEDS: LEVOTHYROXINE 25 MCG TABLET PO SCH (07:17)
[2021-03-26] MEDS: IPRATROPIUM 500 MCG/2.5 ML NEB RESP TX SCH ×4 (07:35→20:18)
[2021-03-26] MEDS: GABAPENTIN 300 MG CAPSULE PO SCH ×2 (08:45→23:16)
[2021-03-26] MEDS: PANTOPRAZOLE 40 MG TABLET PO SCH (08:46)
[2021-03-26] MEDS: DOCUSATE SODIUM 100 MG CAPSULE PO SCH ×2 (08:46→23:16)
[2021-03-26] MEDS: CALCIUM (CARBONATE)/VITAMIN D 600 MG-400 UNIT TABLET PO SCH (08:46)
[2021-03-26] MEDS: MAGNESIUM CHLORIDE 64 MG TABLET PO SCH (08:46)
[2021-03-26] MEDS: POTASSIUM GLUCONATE 500 MG TABLET PO SCH (08:46)
[2021-03-26] MEDS: sitaGLIPtin 25 MG TABLET PO SCH (08:46)
[2021-03-26] MEDS: ATORVASTATIN 10 MG TABLET PO SCH (08:46)
[2021-03-26] MEDS: APIXABAN 2.5 MG TABLET PO SCH ×2 (08:46→23:16)
[2021-03-26] MEDS ORDERED: PHENOL 1.4% THROAT SPRAY 177 ML BOTTLE PO PRN (11:34)
[2021-03-26] MEDS: SODIUM CHLORIDE 0.45% 1,000 ML IV SCH (11:59)
[2021-03-26] MEDS: cefTRIAXone 1,000 MG in SODIUM CHLORIDE 0.9% 100 ML IV SCH (11:59)
[2021-03-26 12:40] LABS: Basophils % 0.2 % (0.0-0.8); Eosinophils % 0.2 % (0.00-10.9); Hematocrit 31.9 VOL% (35.7-47.0); Hemoglobin 10.2 GM/DL (12.0-16.0); Immature Granulocytes % 0.5 %; Immature Granulocytes Absolute 0.03 #; Lymphocytes # 0.7 10*3/uL (1.4-4.0); Lymphocytes % 11.6 % (21.3-54.2); Mean Corpuscular Volume 91.7 FL (87-102); Mean Platelet Volume 8.9 FL (9.6-12.0); Monocytes % 4.5 % (1.7-12.7); Platelet Count 93 T/CUMM (130-400); Red Blood Count 3.48 MC/CUMM (3.8-5.5); Red Cell Distribution Width 14.8 % (9.3-17.3); White Blood Count 6.2 T/CUMM (4-12)
[2021-03-26 13:06] LABS: Alanine Aminotransferase 20 U/L (13-56); Albumin 2.7 G/DL (3.4-5.0); Alkaline Phosphatase 62 U/L (45-117); Aspartate Amino Transferase 16 U/L (0-37); Bilirubin,Total < 0.39 MG/DL (0.20-1.00); Blood Urea Nitrogen 31 MG/DL (7-18); Calcium 8.1 MG/DL (8.5-10.1); Carbon Dioxide 24 MMOL/L (21-32); Estimated Glom Filtration Rate 49 ML/MIN; Glucose 86 MG/DL (74-106); Osmolality,Calculated 275.1 MOS/KG (273-304); Potassium 3.6 MMOL/L (3.5-5.1); Sodium 135 MMOL/L (136-145); Total Protein 6.3 G/DL (6.4-8.2)
[2021-03-26 13:33] LABS: Band Neutrophils 9 % (0-10); Lymphocytes 15 % (20-55); Segmented Neutrophils 71 % (50-85); Total Cells Counted 100
[2021-03-26 13:34] LABS: Anisocytosis 2+; Atypical Lymphocytes Few; Macrocytosis 2+; Microcytosis 2+; Platelet Estimate Decreased
[2021-03-26] MEDS: INSULIN LISPRO 100 UNIT/ML SUBCUT SCH ×2 (16:50→23:16)
[2021-03-27 05:45] LABS: Albumin 2.5 G/DL (3.4-5.0); Bilirubin,Total 0.7 MG/DL (0.20-1.00); Calcium 8.1 MG/DL (8.5-10.1); Potassium 3.5 MMOL/L (3.5-5.1); Total Protein 5.7 G/DL (6.4-8.2)
[2021-03-27 05:54] LABS: Basophils % 0.2 % (0.0-0.8); Eosinophils # 0.1 10*3/uL (0.0-0.87); Eosinophils % 1.3 % (0.00-10.9); Hematocrit 29.7 VOL% (35.7-47.0); Hemoglobin 9.7 GM/DL (12.0-16.0); Immature Granulocytes % 0.7 %; Immature Granulocytes Absolute 0.03 #; Lymphocytes # 0.8 10*3/uL (1.4-4.0); Lymphocytes % 18.5 % (21.3-54.2); Mean Corpuscular HGB Conc 32.7 GM/DL (32-36); Mean Corpuscular Volume 90.5 FL (87-102); Mean Platelet Volume 9.2 FL (9.6-12.0); Neutrophils % 73.3 % (38.7-73.9); Platelet Count 106 T/CUMM (130-400); Red Blood Count 3.28 MC/CUMM (3.8-5.5); Red Cell Distribution Width 14.9 % (9.3-17.3); White Blood Count 4.5 T/CUMM (4-12)
[2021-03-27 06:25] LABS: Atypical Lymphocytes Few; Band Neutrophils 3 % (0-10); Eosinophils 2 % (0-10); Lymphocytes 18 % (20-55); Segmented Neutrophils 71 % (50-85); Total Cells Counted 100
[2021-03-27 06:26] LABS: Hypochromasia Slight; Microcytosis 2+; Platelet Estimate Decreased
[2021-03-27] MEDS: LEVOTHYROXINE 25 MCG TABLET PO SCH (07:06)
[2021-03-27] MEDS: IPRATROPIUM 500 MCG/2.5 ML NEB RESP TX SCH ×4 (07:23→19:38)
[2021-03-27] MEDS: SODIUM CHLORIDE 0.45% 1,000 ML IV SCH (08:21)
[2021-03-27] MEDS: APIXABAN 2.5 MG TABLET PO SCH ×2 (09:02→21:46)
[2021-03-27] MEDS: GABAPENTIN 300 MG CAPSULE PO SCH ×2 (09:02→21:46)
[2021-03-27] MEDS: POTASSIUM GLUCONATE 500 MG TABLET PO SCH (09:02)
[2021-03-27] MEDS: sitaGLIPtin 25 MG TABLET PO SCH (09:02)
[2021-03-27] MEDS: predniSONE 10 MG TABLET PO SCH (09:03)
[2021-03-27] MEDS: MAGNESIUM CHLORIDE 64 MG TABLET PO SCH (09:03)
[2021-03-27] MEDS: PANTOPRAZOLE 40 MG TABLET PO SCH (09:03)
[2021-03-27] MEDS: ATORVASTATIN 10 MG TABLET PO SCH (09:03)
[2021-03-27] MEDS: CALCIUM (CARBONATE)/VITAMIN D 600 MG-400 UNIT TABLET PO SCH (09:03)
[2021-03-27] MEDS: DOCUSATE SODIUM 100 MG CAPSULE PO SCH (09:03)
[2021-03-27] MEDS: INSULIN LISPRO 100 UNIT/ML SUBCUT SCH ×3 (10:32→18:12)
[2021-03-27] MEDS: cefTRIAXone 1,000 MG in SODIUM CHLORIDE 0.9% 100 ML IV SCH (11:41)
[2021-03-27] MEDS ORDERED: MAGNESIUM SULF RIDER 2 GM/50 ML PREMIX IV PRN (11:55)
[2021-03-27] MEDS ORDERED: MAGNESIUM SULF RIDER 4 GM/100 ML PREMIX IV PRN (11:55)
[2021-03-28] MEDS: INSULIN LISPRO 100 UNIT/ML SUBCUT SCH ×2 (02:47→07:58)
[2021-03-28] MEDS: DOCUSATE SODIUM 100 MG CAPSULE PO SCH ×2 (02:47→10:08)
[2021-03-28 05:57] LABS: Basophils % 0.3 % (0.0-0.8); Eosinophils # 0.1 10*3/uL (0.0-0.87); Eosinophils % 1.3 % (0.00-10.9); Hematocrit 27.8 VOL% (35.7-47.0); Immature Granulocytes % 0.8 %; Immature Granulocytes Absolute 0.03 #; Lymphocytes # 0.8 10*3/uL (1.4-4.0); Lymphocytes % 22.2 % (21.3-54.2); Mean Corpuscular HGB Conc 32.4 GM/DL (32-36); Mean Corpuscular Volume 91.7 FL (87-102); Mean Platelet Volume 9.2 FL (9.6-12.0); Monocytes % 6.9 % (1.7-12.7); Neutrophils % 68.5 % (38.7-73.9); Platelet Count 100 T/CUMM (130-400); Red Blood Count 3.03 MC/CUMM (3.8-5.5); Red Cell Distribution Width 14.6 % (9.3-17.3); White Blood Count 3.8 T/CUMM (4-12)
[2021-03-28 06:22] LABS: Calcium 7.6 MG/DL (8.5-10.1); Osmolality,Calculated 277.5 MOS/KG (273-304); Potassium 3.3 MMOL/L (3.5-5.1)
[2021-03-28 06:30] LABS: Band Neutrophils 1 % (0-10); Hypochromasia 1+; Lymphocytes 27 % (20-55); Microcytosis 1+; Segmented Neutrophils 69 % (50-85); Total Cells Counted 100
[2021-03-28] MEDS: SODIUM CHLORIDE 0.45% 1,000 ML IV SCH ×2 (06:47→11:33)
[2021-03-28] MEDS: LEVOTHYROXINE 25 MCG TABLET PO SCH (07:22)
[2021-03-28] MEDS: IPRATROPIUM 500 MCG/2.5 ML NEB RESP TX SCH ×2 (07:25→11:18)
[2021-03-28 07:51] VITALS: BP 154/87
[2021-03-28] MEDS ORDERED: METOPROLOL TARTRATE 25 MG TABLET PO SCH (09:00)
[2021-03-28] MEDS ORDERED: POTASSIUM CHLORIDE 20 MEQ TABLET PO ONE (10:00)
[2021-03-28] MEDS: GABAPENTIN 300 MG CAPSULE PO SCH (10:08)
[2021-03-28] MEDS: ATORVASTATIN 10 MG TABLET PO SCH (10:08)
[2021-03-28] MEDS: MAGNESIUM CHLORIDE 64 MG TABLET PO SCH (10:08)
[2021-03-28] MEDS: POTASSIUM GLUCONATE 500 MG TABLET PO SCH (10:08)
[2021-03-28] MEDS: PANTOPRAZOLE 40 MG TABLET PO SCH (10:09)
[2021-03-28] MEDS: CALCIUM (CARBONATE)/VITAMIN D 600 MG-400 UNIT TABLET PO SCH (10:09)
[2021-03-28] MEDS: sitaGLIPtin 25 MG TABLET PO SCH (10:09)
[2021-03-28] MEDS: APIXABAN 2.5 MG TABLET PO SCH (10:09)
[2021-03-28] MEDS: cefTRIAXone 1,000 MG in SODIUM CHLORIDE 0.9% 100 ML IV SCH (11:33)
== END 2021-03-28 11:27 | disposition home health service (06) | DRG 690 ==
LOC: N.ED 03:52 → N.EDINP 08:05 → N.5E 08:40
PROVIDERS: ADMIT Family Medicine; ATTEND Family Medicine

== ENCOUNTER 2021-07-24 20:22 | Inpatient (IN) ==
[2021-07-24] MEDS ORDERED: SODIUM CHLORIDE 0.9% 1,000 ML IV STA (20:49)
[2021-07-24] MEDS ORDERED: ONDANSETRON 4 MG/2 ML VIAL IV STA (20:49)
[2021-07-24] MEDS ORDERED: DEXTROSE 50% 25 GM/50 ML VIAL IV STA (21:14)
[2021-07-24] MEDS ORDERED: DEXTROSE 50% 25 GM/50 ML SYRINGE IV ONE (21:18)
[2021-07-24] MEDS ORDERED: DEXTROSE 50% 25 GM/50 ML SYRINGE IV STA (21:22)
[2021-07-24 21:23] LABS: Basophils % 0.2 % (0.0-0.8); Eosinophils % 0.2 % (0.00-10.9); Hematocrit 37.1 VOL% (35.7-47.0); Hemoglobin 11.9 GM/DL (12.0-16.0); Immature Granulocytes % 0.4 %; Immature Granulocytes Absolute 0.05 #; Lymphocytes # 1.5 10*3/uL (1.4-4.0); Lymphocytes % 13.4 % (21.3-54.2); Mean Corpuscular HGB Conc 32.1 GM/DL (32-36); Mean Corpuscular Volume 95.4 FL (87-102); Mean Platelet Volume 9.3 FL (9.6-12.0); Monocytes % 11.5 % (1.7-12.7); Neutrophils % 74.3 % (38.7-73.9); Platelet Count 375 T/CUMM (130-400); Red Blood Count 3.89 MC/CUMM (3.8-5.5); Red Cell Distribution Width 14.1 % (9.3-17.3); White Blood Count 11.5 T/CUMM (4-12)
[2021-07-24 21:58] LABS: Albumin 2.5 G/DL (3.4-5.0); Bilirubin,Total 0.4 MG/DL (0.20-1.00); Calcium 7.6 MG/DL (8.5-10.1); Potassium 5.6 MMOL/L (3.5-5.1); Total Protein 5.3 G/DL (6.4-8.2)
[2021-07-24] MEDS ORDERED: SODIUM CHLORIDE 0.9% 1,250 ML IV STA (22:04)
[2021-07-24] MEDS ORDERED: LEVOFLOXACIN INJ 500 MG/100 ML PREMIX IV ONE (22:13)
[2021-07-24] MEDS ORDERED: ACETAMINOPHEN 325 MG TABLET PO PRN (22:55)
[2021-07-24] MEDS ORDERED: ONDANSETRON 4 MG/2 ML VIAL IV PRN (22:55)
[2021-07-24] MEDS ORDERED: SODIUM CHLORIDE 0.9% 1,000 ML IV SCH (23:00)
[2021-07-25 01:23] LABS: Band Neutrophils 4 % (0-10); Lymphocytes 19 % (20-55); Platelet Estimate Normal; Segmented Neutrophils 68 % (50-85); Total Cells Counted 100
[2021-07-25] MEDS ORDERED: DEXTROSE 50% 25 GM/50 ML VIAL IV ONE (03:07)
[2021-07-25] MEDS ORDERED: DEXTROSE 5% NACL 0.45% 1,000 ML IV SCH (03:10)
[2021-07-25] MEDS ORDERED: DEXTROSE 50% 25 GM/50 ML SYRINGE IV ONE (03:30)
[2021-07-25] MEDS ORDERED: NOREPINEPHRINE 4 MG/4 ML VIAL IV ONE (04:32)
[2021-07-25] MEDS ORDERED: NOREPINEPHRINE 8 MG in SODIUM CHLORIDE 0.9% 242 ML IV PRN (04:32)
[2021-07-25] MEDS ORDERED: metroNIDAZOLE INJ 500 MG/100 ML PREMIX IV ONE (04:54)
[2021-07-25] MEDS: methylPREDNISolone SOD SUC 40 MG/1 ML VIAL IV SCH ×2 (05:05→18:21)
[2021-07-25 05:17] LABS: Bacteria,Urine Many /HPF (Few); Mucus,Urine Occasional /LPF (Occasional); Protein,Urine 2+ MG/DL; Urine Appearance Cloudy (Clear); Urine Color Yellow (Yellow); Urine Specific Gravity 1.025 (1.001-1.035)
[2021-07-25 05:18] LABS: Bilirubin,Urine Negative (Negative); Blood, Urine Moderate mg/dL (Negative); Glucose,Urine (UA) Negative (Negative); Ketones,Urine Negative (Negative); Nitrite,Urine Negative (Negative); Urine Urobilinogen 0.2 EU/DL (<2.0)
[2021-07-25] MEDS ORDERED: methylPREDNISolone SOD SUC 40 MG/1 ML VIAL IV ONE (05:59)
[2021-07-25 06:25] LABS: Albumin 2.1 G/DL (3.4-5.0); Bilirubin,Total 0.4 MG/DL (0.20-1.00); Potassium 4.3 MMOL/L (3.5-5.1); Total Protein 5.1 G/DL (6.4-8.2)
[2021-07-25 06:52] LABS: Ferritin 364.3 ng/mL (8-252)
[2021-07-25] MEDS ORDERED: HYDROCORTISONE 100 MG VIAL IV SCH (07:00)
[2021-07-25] MEDS ORDERED: DEXTROSE 5% NACL 0.9% 1,000 ML IV SCH (07:30)
[2021-07-25] MEDS: APIXABAN 2.5 MG TABLET PO SCH ×2 (08:40→18:22)
[2021-07-25] MEDS: SERTRALINE 25 MG TABLET PO SCH (08:40)
[2021-07-25] MEDS: LEVOTHYROXINE 25 MCG TABLET PO SCH (08:40)
[2021-07-25] MEDS ORDERED: PANTOPRAZOLE 40 MG VIAL IV SCH (09:00)
[2021-07-25] MEDS: metroNIDAZOLE INJ 500 MG/100 ML PREMIX IV SCH ×2 (09:05→18:20)
[2021-07-25] MEDS: MEROPENEM 500 MG in SODIUM CHLORIDE 0.9% 100 ML IV SCH (09:21)
[2021-07-25] MEDS: ALBUTEROL/IPRATROPIUM 3 ML NEB RESP TX SCH ×3 (10:10→21:09)
[2021-07-25] MEDS: SODIUM CHLORIDE 0.9% 1,000 ML IV SCH ×2 (11:42→21:29)
[2021-07-25 13:40] LABS: Calcium 6.6 MG/DL (8.5-10.1); Osmolality,Calculated 304.2 MOS/KG (273-304); Potassium 5.5 MMOL/L (3.5-5.1)
[2021-07-25] MEDS ORDERED: AMITRIPTYLINE 10 MG TABLET PO PRN (18:00)
[2021-07-25] MEDS: HYDROCORTISONE 100 MG VIAL IV SCH ×2 (18:21→21:29)
[2021-07-25] MEDS: ATORVASTATIN 20 MG TABLET PO SCH (18:22)
[2021-07-26] MEDS: metroNIDAZOLE INJ 500 MG/100 ML PREMIX IV SCH (02:23)
[2021-07-26] MEDS: methylPREDNISolone SOD SUC 40 MG/1 ML VIAL IV SCH ×2 (05:18→17:20)
[2021-07-26] MEDS: SODIUM CHLORIDE 0.9% 1,000 ML IV SCH ×3 (05:18→21:00)
[2021-07-26] MEDS: HYDROCORTISONE 100 MG VIAL IV SCH ×3 (05:18→21:46)
[2021-07-26 05:35] LABS: Basophils % 0.1 % (0.0-0.8); Hematocrit 37.5 VOL% (35.7-47.0); Hemoglobin 11.6 GM/DL (12.0-16.0); Immature Granulocytes % 0.5 %; Immature Granulocytes Absolute 0.05 #; Lymphocytes # 0.5 10*3/uL (1.4-4.0); Lymphocytes % 4.7 % (21.3-54.2); Mean Corpuscular HGB Conc 30.9 GM/DL (32-36); Mean Corpuscular Volume 99.2 FL (87-102); Monocytes % 6.2 % (1.7-12.7); Neutrophils % 88.5 % (38.7-73.9); Platelet Count 336 T/CUMM (130-400); Red Blood Count 3.78 MC/CUMM (3.8-5.5); Red Cell Distribution Width 14.1 % (9.3-17.3); White Blood Count 10.6 T/CUMM (4-12)
[2021-07-26] MEDS: ALBUTEROL/IPRATROPIUM 3 ML NEB RESP TX SCH ×4 (05:43→21:12)
[2021-07-26 05:57] LABS: Osmolality,Calculated 311.4 MOS/KG (273-304); Potassium 5.3 MMOL/L (3.5-5.1)
[2021-07-26 06:09] LABS: Hypochromia Slight; Lymphocytes 5 % (20-55); Microcytosis Slight; Platelet Estimate Adequate; Segmented Neutrophils 90 % (50-85); Total Cells Counted 100
[2021-07-26] MEDS ORDERED: GLUCAGON 1 MG VIAL IM PRN (07:42)
[2021-07-26] MEDS ORDERED: DEXTROSE 10% 250 ML BAG IV PRN (07:44)
[2021-07-26] MEDS ORDERED: DIPHENOXYLATE/ATROPINE 2.5-0.025 MG TABLET PO PRN (08:54)
[2021-07-26] MEDS ORDERED: PANTOPRAZOLE 40 MG TABLET PO SCH (09:00)
[2021-07-26] MEDS ORDERED: DEXTROMETHORPHAN ER 6 MG/ML 90 ML/BOTTLE PO PRN (09:00)
[2021-07-26] MEDS ORDERED: BENZONATATE 100 MG CAPSULE PO PRN (09:00)
[2021-07-26] MEDS: MEROPENEM 500 MG in SODIUM CHLORIDE 0.9% 100 ML IV SCH (09:20)
[2021-07-26] MEDS: FLUCONAZOLE IV SCH (10:03)
[2021-07-26] MEDS: NYSTATIN CREAM 15 GM TUBE TOP SCH ×3 (10:03→21:46)
[2021-07-26] MEDS: APIXABAN 2.5 MG TABLET PO SCH ×2 (10:04→17:21)
[2021-07-26] MEDS: LOPERAMIDE 2 MG CAPSULE PO PRN ×2 (10:04→21:51)
[2021-07-26] MEDS: LEVOTHYROXINE 25 MCG TABLET PO SCH (10:04)
[2021-07-26] MEDS: CALCIUM (CARBONATE)/VITAMIN D 600 MG-400 UNIT TABLET PO SCH (10:04)
[2021-07-26] MEDS: SERTRALINE 25 MG TABLET PO SCH (10:04)
[2021-07-26] MEDS: LORATADINE 10 MG TABLET PO SCH (10:05)
[2021-07-26] MEDS: CHOLECALCIFEROL 5,000 UNIT TABLET PO SCH (10:46)
[2021-07-26] MEDS: INSULIN LISPRO 100 UNIT/ML SUBCUT SCH ×3 (12:57→21:43)
[2021-07-26] MEDS: METOPROLOL TARTRATE 25 MG TABLET PO SCH ×2 (17:21→21:45)
[2021-07-26] MEDS ORDERED: ALBUTEROL/IPRATROPIUM 3 ML NEB RESP TX ONE (18:49)
[2021-07-26] MEDS ORDERED: SIMETHICONE CHEW 80 MG TABLET PO PRN (18:49)
[2021-07-26] MEDS ORDERED: FAMOTIDINE 20 MG/2 ML VIAL IV SCH (21:00)
[2021-07-26] MEDS ORDERED: LOPERAMIDE 2 MG CAPSULE PO PRN (21:50)
[2021-07-27] MEDS: ALBUTEROL INHALER 18 GM INH SCH ×2 (01:35→06:00)
[2021-07-27 04:56] LABS: Basophils % 0.1 % (0.0-0.8); Hematocrit 37.1 VOL% (35.7-47.0); Hemoglobin 11.3 GM/DL (12.0-16.0); Immature Granulocytes % 1.1 %; Immature Granulocytes Absolute 0.09 #; Lymphocytes # 0.4 10*3/uL (1.4-4.0); Lymphocytes % 4.5 % (21.3-54.2); Mean Corpuscular HGB Conc 30.5 GM/DL (32-36); Mean Corpuscular Volume 100.5 FL (87-102); Mean Platelet Volume 9.1 FL (9.6-12.0); Monocytes % 4.8 % (1.7-12.7); Neutrophils % 89.5 % (38.7-73.9); Platelet Count 316 T/CUMM (130-400); Red Blood Count 3.69 MC/CUMM (3.8-5.5); Red Cell Distribution Width 14.5 % (9.3-17.3); White Blood Count 8.2 T/CUMM (4-12)
[2021-07-27 04:58] LABS: Calcium 6.4 MG/DL (8.5-10.1); Potassium 4.5 MMOL/L (3.5-5.1)
[2021-07-27] MEDS: SODIUM CHLORIDE 0.9% 1,000 ML IV SCH ×3 (05:06→20:11)
[2021-07-27 05:20] LABS: Band Neutrophils 1 % (0-10); Burr Cells Slight; Hypochromia 1+; Lymphocytes 3 % (20-55); Segmented Neutrophils 92 % (50-85); Total Cells Counted 100
[2021-07-27 05:21] LABS: Microcytosis 1+; Ovalocytes Slight; Platelet Estimate Normal
[2021-07-27] MEDS: methylPREDNISolone SOD SUC 40 MG/1 ML VIAL IV SCH ×2 (05:58→16:46)
[2021-07-27] MEDS: INSULIN LISPRO 100 UNIT/ML SUBCUT SCH ×4 (07:29→20:11)
[2021-07-27] MEDS: HYDROCORTISONE 100 MG VIAL IV SCH (08:15)
[2021-07-27] MEDS: LORATADINE 10 MG TABLET PO SCH (08:16)
[2021-07-27] MEDS: LEVOTHYROXINE 25 MCG TABLET PO SCH (08:16)
[2021-07-27] MEDS: CALCIUM (CARBONATE)/VITAMIN D 600 MG-400 UNIT TABLET PO SCH (08:16)
[2021-07-27] MEDS: LOPERAMIDE 2 MG CAPSULE PO PRN (08:16)
[2021-07-27] MEDS: SERTRALINE 25 MG TABLET PO SCH (08:16)
[2021-07-27] MEDS: CHOLECALCIFEROL 5,000 UNIT TABLET PO SCH (08:16)
[2021-07-27] MEDS: FAMOTIDINE 20 MG TABLET PO SCH (08:16)
[2021-07-27] MEDS: METOPROLOL TARTRATE 25 MG TABLET PO SCH ×2 (08:17→20:31)
[2021-07-27] MEDS: APIXABAN 2.5 MG TABLET PO SCH ×2 (08:17→16:46)
[2021-07-27] MEDS: MEROPENEM 500 MG in SODIUM CHLORIDE 0.9% 100 ML IV SCH (08:18)
[2021-07-27] MEDS: NYSTATIN CREAM 15 GM TUBE TOP SCH ×3 (08:20→20:32)
[2021-07-27] MEDS: SODIUM BICARBONATE 650 MG TABLET PO SCH ×3 (08:20→20:36)
[2021-07-27] MEDS: FLUCONAZOLE IV SCH (09:35)
[2021-07-27] MEDS: ALBUTEROL/IPRATROPIUM 3 ML NEB RESP TX SCH ×3 (12:15→20:35)
[2021-07-27] MEDS ORDERED: CLORAZEPATE 7.5 MG TABLET PO PRN (16:11)
[2021-07-27] MEDS: ATORVASTATIN 20 MG TABLET PO SCH (16:46)
[2021-07-27] MEDS: hydrALAZINE 10 MG TABLET PO SCH (20:31)
[2021-07-28] MEDS: ALBUTEROL/IPRATROPIUM 3 ML NEB RESP TX SCH ×4 (00:55→19:03)
[2021-07-28] MEDS: SODIUM CHLORIDE 0.9% 1,000 ML IV SCH ×3 (04:30→19:34)
[2021-07-28 04:59] LABS: Basophils % 0.2 % (0.0-0.8); Hematocrit 38.8 VOL% (35.7-47.0); Hemoglobin 12.1 GM/DL (12.0-16.0); Immature Granulocytes % 1.2 %; Immature Granulocytes Absolute 0.14 #; Lymphocytes # 0.7 10*3/uL (1.4-4.0); Lymphocytes % 6.5 % (21.3-54.2); Mean Corpuscular HGB Conc 31.2 GM/DL (32-36); Mean Corpuscular Volume 97.2 FL (87-102); Mean Platelet Volume 8.9 FL (9.6-12.0); Monocytes % 8.8 % (1.7-12.7); Neutrophils % 83.3 % (38.7-73.9); Platelet Count 321 T/CUMM (130-400); Red Blood Count 3.99 MC/CUMM (3.8-5.5); Red Cell Distribution Width 14.5 % (9.3-17.3); White Blood Count 11.5 T/CUMM (4-12)
[2021-07-28 05:20] LABS: Calcium 6.7 MG/DL (8.5-10.1); Osmolality,Calculated 303.7 MOS/KG (273-304); Potassium 4.1 MMOL/L (3.5-5.1)
[2021-07-28] MEDS: methylPREDNISolone SOD SUC 40 MG/1 ML VIAL IV SCH ×2 (05:51→17:35)
[2021-07-28] MEDS: INSULIN LISPRO 100 UNIT/ML SUBCUT SCH ×4 (08:47→21:02)
[2021-07-28] MEDS: SERTRALINE 100 MG TABLET PO SCH (10:15)
[2021-07-28] MEDS: APIXABAN 2.5 MG TABLET PO SCH ×2 (10:16→17:40)
[2021-07-28] MEDS: NYSTATIN CREAM 15 GM TUBE TOP SCH ×3 (10:20→20:17)
[2021-07-28] MEDS: hydrALAZINE 10 MG TABLET PO SCH ×2 (10:21→20:17)
[2021-07-28] MEDS: FAMOTIDINE 20 MG TABLET PO SCH (10:22)
[2021-07-28] MEDS: LORATADINE 10 MG TABLET PO SCH (10:22)
[2021-07-28] MEDS: LEVOTHYROXINE 25 MCG TABLET PO SCH (10:22)
[2021-07-28] MEDS: CHOLECALCIFEROL 5,000 UNIT TABLET PO SCH (10:22)
[2021-07-28] MEDS: CALCIUM (CARBONATE)/VITAMIN D 600 MG-400 UNIT TABLET PO SCH (10:23)
[2021-07-28] MEDS: SODIUM BICARBONATE 650 MG TABLET PO SCH ×3 (10:23→20:16)
[2021-07-28] MEDS: METOPROLOL TARTRATE 25 MG TABLET PO SCH ×2 (10:23→20:16)
[2021-07-28] MEDS: MEROPENEM 500 MG in SODIUM CHLORIDE 0.9% 100 ML IV SCH (10:28)
[2021-07-28] MEDS: FLUCONAZOLE 150 MG TABLET PO SCH (13:34)
[2021-07-28] MEDS: ZALEPLON 5 MG CAPSULE PO SCH (20:16)
[2021-07-28] MEDS: DESITIN 4OZ/NYSTATIN 15 GRAM MIXTURE PASTE TOP SCH (20:17)
[2021-07-29] MEDS: SODIUM CHLORIDE 0.9% 1,000 ML IV SCH ×3 (00:35→21:48)
[2021-07-29] MEDS: ALBUTEROL/IPRATROPIUM 3 ML NEB RESP TX SCH ×4 (00:37→20:15)
[2021-07-29] MEDS: methylPREDNISolone SOD SUC 40 MG/1 ML VIAL IV SCH ×2 (05:04→17:37)
[2021-07-29] MEDS: INSULIN LISPRO 100 UNIT/ML SUBCUT SCH ×4 (08:43→21:12)
[2021-07-29] MEDS: METOPROLOL TARTRATE 25 MG TABLET PO SCH ×2 (09:50→21:11)
[2021-07-29] MEDS: LORATADINE 10 MG TABLET PO SCH (09:51)
[2021-07-29] MEDS: CALCIUM (CARBONATE)/VITAMIN D 600 MG-400 UNIT TABLET PO SCH (09:51)
[2021-07-29] MEDS: SODIUM BICARBONATE 650 MG TABLET PO SCH ×3 (09:51→21:11)
[2021-07-29] MEDS: APIXABAN 2.5 MG TABLET PO SCH ×2 (09:51→17:38)
[2021-07-29] MEDS: hydrALAZINE 10 MG TABLET PO SCH ×2 (09:51→21:11)
[2021-07-29] MEDS: CHOLECALCIFEROL 5,000 UNIT TABLET PO SCH (09:51)
[2021-07-29] MEDS: LEVOTHYROXINE 25 MCG TABLET PO SCH (09:51)
[2021-07-29] MEDS: SERTRALINE 100 MG TABLET PO SCH (09:51)
[2021-07-29] MEDS: FAMOTIDINE 20 MG TABLET PO SCH (09:51)
[2021-07-29] MEDS: NYSTATIN CREAM 15 GM TUBE TOP SCH ×3 (09:52→21:12)
[2021-07-29] MEDS: FLUCONAZOLE 150 MG TABLET PO SCH (09:54)
[2021-07-29] MEDS: DESITIN 4OZ/NYSTATIN 15 GRAM MIXTURE PASTE TOP SCH ×2 (09:54→21:12)
[2021-07-29] MEDS: MEROPENEM 500 MG in SODIUM CHLORIDE 0.9% 100 ML IV SCH (09:55)
[2021-07-29] MEDS: ATORVASTATIN 20 MG TABLET PO SCH (17:38)
[2021-07-29] MEDS: ZALEPLON 5 MG CAPSULE PO SCH (21:12)
[2021-07-30] MEDS: ALBUTEROL/IPRATROPIUM 3 ML NEB RESP TX SCH ×4 (01:26→19:00)
[2021-07-30] MEDS: methylPREDNISolone SOD SUC 40 MG/1 ML VIAL IV SCH ×2 (05:41→17:30)
[2021-07-30] MEDS: INSULIN LISPRO 100 UNIT/ML SUBCUT SCH ×4 (08:29→20:35)
[2021-07-30] MEDS: FLUCONAZOLE 150 MG TABLET PO SCH (08:45)
[2021-07-30] MEDS: METOPROLOL TARTRATE 25 MG TABLET PO SCH ×2 (08:45→20:51)
[2021-07-30] MEDS: APIXABAN 2.5 MG TABLET PO SCH ×2 (08:49→17:30)
[2021-07-30] MEDS: FAMOTIDINE 20 MG TABLET PO SCH (08:49)
[2021-07-30] MEDS: SERTRALINE 100 MG TABLET PO SCH (08:49)
[2021-07-30] MEDS: hydrALAZINE 10 MG TABLET PO SCH ×2 (08:50→20:51)
[2021-07-30] MEDS: CHOLECALCIFEROL 5,000 UNIT TABLET PO SCH (08:50)
[2021-07-30] MEDS: LORATADINE 10 MG TABLET PO SCH (08:50)
[2021-07-30] MEDS: CALCIUM (CARBONATE)/VITAMIN D 600 MG-400 UNIT TABLET PO SCH (08:50)
[2021-07-30] MEDS: SODIUM BICARBONATE 650 MG TABLET PO SCH ×3 (08:50→20:51)
[2021-07-30] MEDS: LEVOTHYROXINE 25 MCG TABLET PO SCH (08:50)
[2021-07-30] MEDS: DESITIN 4OZ/NYSTATIN 15 GRAM MIXTURE PASTE TOP SCH ×2 (08:51→20:52)
[2021-07-30] MEDS: NYSTATIN CREAM 15 GM TUBE TOP SCH ×3 (08:51→20:52)
[2021-07-30] MEDS: MEROPENEM 500 MG in SODIUM CHLORIDE 0.9% 100 ML IV SCH (08:51)
[2021-07-30] MEDS ORDERED: ALBUTEROL/IPRATROPIUM 3 ML NEB RESP TX PRN (10:36)
[2021-07-30] MEDS: SODIUM CHLORIDE 0.9% 1,000 ML IV SCH (10:37)
[2021-07-30 11:15] LABS: Basophils % 0.1 % (0.0-0.8); Hematocrit 37.4 VOL% (35.7-47.0); Hemoglobin 12.2 GM/DL (12.0-16.0); Immature Granulocytes % 0.9 %; Immature Granulocytes Absolute 0.17 #; Lymphocytes # 1.4 10*3/uL (1.4-4.0); Lymphocytes % 7.1 % (21.3-54.2); Mean Corpuscular HGB Conc 32.6 GM/DL (32-36); Mean Corpuscular Volume 94.2 FL (87-102); Monocytes % 9.9 % (1.7-12.7); Platelet Count 297 T/CUMM (130-400); Red Blood Count 3.97 MC/CUMM (3.8-5.5); Red Cell Distribution Width 14.6 % (9.3-17.3); White Blood Count 19.9 T/CUMM (4-12)
[2021-07-30 11:44] LABS: Calcium 6.4 MG/DL (8.5-10.1); Osmolality,Calculated 284.4 MOS/KG (273-304)
[2021-07-30] MEDS: POTASSIUM CHLORIDE 20 MEQ TABLET PO PRN ×4 (13:13→20:51)
[2021-07-30] MEDS: ZALEPLON 5 MG CAPSULE PO SCH (20:51)
[2021-07-31] MEDS: SODIUM CHLORIDE 0.9% 1,000 ML IV SCH ×2 (00:06→14:00)
[2021-07-31 05:11] LABS: Basophils % 0.1 % (0.0-0.8); Hemoglobin 12.5 GM/DL (12.0-16.0); Immature Granulocytes % 1.5 %; Immature Granulocytes Absolute 0.25 #; Lymphocytes # 0.9 10*3/uL (1.4-4.0); Lymphocytes % 5.5 % (21.3-54.2); Mean Corpuscular HGB Conc 32.9 GM/DL (32-36); Mean Corpuscular Volume 92.5 FL (87-102); Mean Platelet Volume 9.1 FL (9.6-12.0); Monocytes % 6.4 % (1.7-12.7); Neutrophils % 86.5 % (38.7-73.9); Platelet Count 281 T/CUMM (130-400); Red Blood Count 4.11 MC/CUMM (3.8-5.5); Red Cell Distribution Width 14.6 % (9.3-17.3); White Blood Count 17.1 T/CUMM (4-12)
[2021-07-31 05:24] LABS: Calcium 6.6 MG/DL (8.5-10.1); Osmolality,Calculated 286.5 MOS/KG (273-304)
[2021-07-31] MEDS: methylPREDNISolone SOD SUC 40 MG/1 ML VIAL IV SCH ×2 (06:00→17:33)
[2021-07-31] MEDS: INSULIN LISPRO 100 UNIT/ML SUBCUT SCH ×4 (08:07→21:36)
[2021-07-31] MEDS: METOPROLOL TARTRATE 25 MG TABLET PO SCH ×2 (08:22→21:54)
[2021-07-31] MEDS: SODIUM BICARBONATE 650 MG TABLET PO SCH ×3 (08:22→21:53)
[2021-07-31] MEDS: CALCIUM (CARBONATE)/VITAMIN D 600 MG-400 UNIT TABLET PO SCH (08:22)
[2021-07-31] MEDS: APIXABAN 2.5 MG TABLET PO SCH ×2 (08:23→17:31)
[2021-07-31] MEDS: CHOLECALCIFEROL 5,000 UNIT TABLET PO SCH (08:23)
[2021-07-31] MEDS: SERTRALINE 100 MG TABLET PO SCH (08:23)
[2021-07-31] MEDS: LEVOTHYROXINE 25 MCG TABLET PO SCH (08:23)
[2021-07-31] MEDS: LORATADINE 10 MG TABLET PO SCH (08:23)
[2021-07-31] MEDS: FAMOTIDINE 20 MG TABLET PO SCH (08:23)
[2021-07-31] MEDS: hydrALAZINE 10 MG TABLET PO SCH ×2 (08:23→21:53)
[2021-07-31] MEDS: MEROPENEM 500 MG in SODIUM CHLORIDE 0.9% 100 ML IV SCH (08:24)
[2021-07-31] MEDS: NYSTATIN CREAM 15 GM TUBE TOP SCH ×3 (08:24→21:54)
[2021-07-31] MEDS: DESITIN 4OZ/NYSTATIN 15 GRAM MIXTURE PASTE TOP SCH ×2 (08:24→21:54)
[2021-07-31] MEDS: ALBUTEROL/IPRATROPIUM 3 ML NEB RESP TX SCH (20:14)
[2021-07-31] MEDS: ZALEPLON 5 MG CAPSULE PO SCH (21:54)
[2021-08-01] MEDS: ALBUTEROL/IPRATROPIUM 3 ML NEB RESP TX SCH ×4 (01:18→19:12)
[2021-08-01] MEDS: methylPREDNISolone SOD SUC 40 MG/1 ML VIAL IV SCH ×2 (05:05→17:25)
[2021-08-01] MEDS: INSULIN LISPRO 100 UNIT/ML SUBCUT SCH ×4 (08:13→21:04)
[2021-08-01] MEDS: LEVOTHYROXINE 25 MCG TABLET PO SCH (08:47)
[2021-08-01] MEDS: SERTRALINE 100 MG TABLET PO SCH (08:48)
[2021-08-01] MEDS: APIXABAN 2.5 MG TABLET PO SCH ×2 (08:48→17:18)
[2021-08-01] MEDS: FAMOTIDINE 20 MG TABLET PO SCH (08:49)
[2021-08-01] MEDS: LORATADINE 10 MG TABLET PO SCH (08:49)
[2021-08-01] MEDS: hydrALAZINE 10 MG TABLET PO SCH ×2 (08:50→21:04)
[2021-08-01] MEDS: METOPROLOL TARTRATE 25 MG TABLET PO SCH ×2 (08:50→21:04)
[2021-08-01] MEDS: CALCIUM (CARBONATE)/VITAMIN D 600 MG-400 UNIT TABLET PO SCH (08:51)
[2021-08-01] MEDS: MEROPENEM 500 MG in SODIUM CHLORIDE 0.9% 100 ML IV SCH (08:54)
[2021-08-01] MEDS: CHOLECALCIFEROL 5,000 UNIT TABLET PO SCH (08:59)
[2021-08-01] MEDS: SODIUM BICARBONATE 650 MG TABLET PO SCH ×3 (08:59→21:04)
[2021-08-01] MEDS: DESITIN 4OZ/NYSTATIN 15 GRAM MIXTURE PASTE TOP SCH ×2 (09:04→22:45)
[2021-08-01] MEDS: NYSTATIN CREAM 15 GM TUBE TOP SCH ×3 (09:04→22:45)
[2021-08-01] MEDS: CLORAZEPATE 7.5 MG TABLET PO SCH ×2 (10:10→21:04)
[2021-08-01] MEDS: SODIUM CHLORIDE 0.9% 1,000 ML IV SCH ×2 (16:17→16:29)
[2021-08-01] MEDS: ATORVASTATIN 20 MG TABLET PO SCH (17:24)
[2021-08-01] MEDS: ZALEPLON 5 MG CAPSULE PO SCH (21:03)
[2021-08-02] MEDS: ALBUTEROL/IPRATROPIUM 3 ML NEB RESP TX SCH ×6 (01:34→22:47)
[2021-08-02] MEDS: SODIUM CHLORIDE 0.9% 1,000 ML IV SCH ×2 (05:59→20:39)
[2021-08-02] MEDS: methylPREDNISolone SOD SUC 40 MG/1 ML VIAL IV SCH ×2 (05:59→17:03)
[2021-08-02] MEDS: INSULIN LISPRO 100 UNIT/ML SUBCUT SCH ×4 (07:43→20:40)
[2021-08-02 08:17] LABS: Basophils % 0.2 % (0.0-0.8); Hematocrit 38.1 VOL% (35.7-47.0); Hemoglobin 12.4 GM/DL (12.0-16.0); Immature Granulocytes % 1.3 %; Immature Granulocytes Absolute 0.28 #; Lymphocytes # 1.3 10*3/uL (1.4-4.0); Mean Corpuscular HGB Conc 32.5 GM/DL (32-36); Mean Corpuscular Volume 92.7 FL (87-102); Mean Platelet Volume 10.3 FL (9.6-12.0); Monocytes % 7.4 % (1.7-12.7); Neutrophils % 85.1 % (38.7-73.9); Platelet Count 270 T/CUMM (130-400); Red Blood Count 4.11 MC/CUMM (3.8-5.5); Red Cell Distribution Width 14.6 % (9.3-17.3); White Blood Count 20.8 T/CUMM (4-12)
[2021-08-02 08:35] LABS: Hypochromia Slight; Lymphocytes 5 % (20-55); Microcytosis Slight; Platelet Estimate Adequate; Segmented Neutrophils 90 % (50-85); Total Cells Counted 100
[2021-08-02] MEDS: NYSTATIN CREAM 15 GM TUBE TOP SCH ×3 (10:10→20:41)
[2021-08-02] MEDS: DESITIN 4OZ/NYSTATIN 15 GRAM MIXTURE PASTE TOP SCH ×2 (10:10→20:41)
[2021-08-02 10:11] LABS: Alanine Aminotransferase 128 U/L (13-56); Albumin 1.8 G/DL (3.4-5.0); Alkaline Phosphatase 916 U/L (45-117); Aspartate Amino Transferase 202 U/L (0-37); Blood Urea Nitrogen 26 MG/DL (7-18); Calcium 6.5 MG/DL (8.5-10.1); Carbon Dioxide 27 MMOL/L (21-32); Estimated Glom Filtration Rate 70 ML/MIN; Glucose 99 MG/DL (74-106); Potassium 4.8 MMOL/L (3.5-5.1); Sodium 136 MMOL/L (136-145); Total Protein 4.7 G/DL (6.4-8.2)
[2021-08-02] MEDS: CLORAZEPATE 3.75 MG TABLET PO SCH ×2 (10:21→20:41)
[2021-08-02] MEDS: APIXABAN 2.5 MG TABLET PO SCH ×2 (10:23→16:59)
[2021-08-02] MEDS: LORATADINE 10 MG TABLET PO SCH (10:23)
[2021-08-02] MEDS: LEVOTHYROXINE 25 MCG TABLET PO SCH (10:24)
[2021-08-02] MEDS: FAMOTIDINE 20 MG TABLET PO SCH (10:25)
[2021-08-02] MEDS: METOPROLOL TARTRATE 25 MG TABLET PO SCH ×2 (10:26→20:41)
[2021-08-02] MEDS: SERTRALINE 100 MG TABLET PO SCH (10:27)
[2021-08-02] MEDS: hydrALAZINE 10 MG TABLET PO SCH ×2 (10:28→20:41)
[2021-08-02] MEDS: CHOLECALCIFEROL 5,000 UNIT TABLET PO SCH (10:28)
[2021-08-02] MEDS: CALCIUM (CARBONATE)/VITAMIN D 600 MG-400 UNIT TABLET PO SCH (10:29)
[2021-08-02] MEDS: SODIUM BICARBONATE 650 MG TABLET PO SCH ×3 (10:30→20:41)
[2021-08-02] MEDS: MEROPENEM 500 MG in SODIUM CHLORIDE 0.9% 100 ML IV SCH (10:52)
[2021-08-02] MEDS ORDERED: SKIN HEALING OINT (AQUAPHOR) 50 GM TUBE TOP SCH (16:30)
[2021-08-02] MEDS: ZALEPLON 5 MG CAPSULE PO SCH (20:41)
[2021-08-02] MEDS: CYPROHEPTADINE 4 MG TABLET PO SCH (20:41)
[2021-08-03] MEDS: ALBUTEROL/IPRATROPIUM 3 ML NEB RESP TX SCH ×2 (00:19→18:39)
[2021-08-03] MEDS: methylPREDNISolone SOD SUC 40 MG/1 ML VIAL IV SCH ×2 (04:55→16:43)
[2021-08-03] MEDS: INSULIN LISPRO 100 UNIT/ML SUBCUT SCH ×4 (09:25→21:32)
[2021-08-03] MEDS: CLORAZEPATE 3.75 MG TABLET PO SCH ×2 (10:58→21:25)
[2021-08-03] MEDS: CYPROHEPTADINE 4 MG TABLET PO SCH ×2 (10:59→21:31)
[2021-08-03] MEDS: hydrALAZINE 10 MG TABLET PO SCH ×2 (10:59→21:25)
[2021-08-03] MEDS: LORATADINE 10 MG TABLET PO SCH (10:59)
[2021-08-03] MEDS: SODIUM BICARBONATE 650 MG TABLET PO SCH ×3 (10:59→21:26)
[2021-08-03] MEDS: SERTRALINE 100 MG TABLET PO SCH (10:59)
[2021-08-03] MEDS: METOPROLOL TARTRATE 25 MG TABLET PO SCH ×2 (10:59→21:25)
[2021-08-03] MEDS: LEVOTHYROXINE 25 MCG TABLET PO SCH (10:59)
[2021-08-03] MEDS: CALCIUM (CARBONATE)/VITAMIN D 600 MG-400 UNIT TABLET PO SCH (10:59)
[2021-08-03] MEDS: APIXABAN 2.5 MG TABLET PO SCH ×2 (10:59→16:41)
[2021-08-03] MEDS: FAMOTIDINE 20 MG TABLET PO SCH (10:59)
[2021-08-03] MEDS: SODIUM CHLORIDE 0.9% 1,000 ML IV SCH ×2 (10:59→11:29)
[2021-08-03] MEDS: NYSTATIN CREAM 15 GM TUBE TOP SCH ×3 (11:00→21:26)
[2021-08-03] MEDS: DESITIN 4OZ/NYSTATIN 15 GRAM MIXTURE PASTE TOP SCH ×2 (11:00→21:26)
[2021-08-03] MEDS: MEROPENEM 500 MG in SODIUM CHLORIDE 0.9% 100 ML IV SCH (11:05)
[2021-08-03] MEDS: CHOLECALCIFEROL 5,000 UNIT TABLET PO SCH (11:13)
[2021-08-03] MEDS: ZINC OXIDE PASTE 113 GM TUBE TOP SCH (12:33)
[2021-08-03] MEDS: ATORVASTATIN 20 MG TABLET PO SCH (16:42)
[2021-08-03] MEDS: ZALEPLON 5 MG CAPSULE PO SCH (21:25)
[2021-08-04] MEDS: ALBUTEROL/IPRATROPIUM 3 ML NEB RESP TX SCH ×4 (00:32→19:40)
[2021-08-04] MEDS: methylPREDNISolone SOD SUC 40 MG/1 ML VIAL IV SCH ×2 (05:29→16:39)
[2021-08-04] MEDS: SODIUM CHLORIDE 0.9% 1,000 ML IV SCH ×3 (05:30→16:52)
[2021-08-04] MEDS: INSULIN LISPRO 100 UNIT/ML SUBCUT SCH ×4 (09:19→22:08)
[2021-08-04] MEDS ORDERED: TUBERCULIN SKIN TEST 0.1 ML SYRINGE INTRADERM ONE (09:30)
[2021-08-04] MEDS: CALCIUM (CARBONATE)/VITAMIN D 600 MG-400 UNIT TABLET PO SCH (09:34)
[2021-08-04] MEDS: FAMOTIDINE 20 MG TABLET PO SCH (09:35)
[2021-08-04] MEDS: CHOLECALCIFEROL 5,000 UNIT TABLET PO SCH (09:35)
[2021-08-04] MEDS: SODIUM BICARBONATE 650 MG TABLET PO SCH ×3 (09:35→22:07)
[2021-08-04] MEDS: DESITIN 4OZ/NYSTATIN 15 GRAM MIXTURE PASTE TOP SCH ×2 (09:35→22:08)
[2021-08-04] MEDS: METOPROLOL TARTRATE 25 MG TABLET PO SCH ×2 (09:35→22:08)
[2021-08-04] MEDS: CLORAZEPATE 3.75 MG TABLET PO SCH ×2 (09:35→22:07)
[2021-08-04] MEDS: hydrALAZINE 10 MG TABLET PO SCH ×2 (09:35→22:08)
[2021-08-04] MEDS: ZINC OXIDE PASTE 113 GM TUBE TOP SCH (09:35)
[2021-08-04] MEDS: APIXABAN 2.5 MG TABLET PO SCH ×2 (09:35→16:40)
[2021-08-04] MEDS: CYPROHEPTADINE 4 MG TABLET PO SCH ×2 (09:35→22:08)
[2021-08-04] MEDS: SERTRALINE 100 MG TABLET PO SCH (09:35)
[2021-08-04] MEDS: LEVOTHYROXINE 25 MCG TABLET PO SCH (09:35)
[2021-08-04] MEDS: LORATADINE 10 MG TABLET PO SCH (09:35)
[2021-08-04] MEDS: NYSTATIN CREAM 15 GM TUBE TOP SCH ×3 (09:36→22:08)
[2021-08-04] MEDS: MEROPENEM 500 MG in SODIUM CHLORIDE 0.9% 100 ML IV SCH (09:36)
[2021-08-04] MEDS: ZALEPLON 5 MG CAPSULE PO SCH (22:07)
[2021-08-05] MEDS: ALBUTEROL/IPRATROPIUM 3 ML NEB RESP TX SCH ×3 (00:05→08:13)
[2021-08-05] MEDS: SODIUM CHLORIDE 0.9% 1,000 ML IV SCH ×2 (00:57→06:18)
[2021-08-05] MEDS: methylPREDNISolone SOD SUC 40 MG/1 ML VIAL IV SCH (04:50)
[2021-08-05] MEDS: INSULIN LISPRO 100 UNIT/ML SUBCUT SCH ×2 (07:16→10:59)
[2021-08-05] MEDS: MEROPENEM 500 MG in SODIUM CHLORIDE 0.9% 100 ML IV SCH (10:00)
[2021-08-05] MEDS: APIXABAN 2.5 MG TABLET PO SCH (10:02)
[2021-08-05] MEDS: FAMOTIDINE 20 MG TABLET PO SCH (10:03)
[2021-08-05] MEDS: LEVOTHYROXINE 25 MCG TABLET PO SCH (10:03)
[2021-08-05] MEDS: LORATADINE 10 MG TABLET PO SCH (10:04)
[2021-08-05] MEDS: CLORAZEPATE 3.75 MG TABLET PO SCH (10:05)
[2021-08-05] MEDS: SERTRALINE 100 MG TABLET PO SCH (10:05)
[2021-08-05] MEDS: METOPROLOL TARTRATE 25 MG TABLET PO SCH (10:06)
[2021-08-05] MEDS: CYPROHEPTADINE 4 MG TABLET PO SCH (10:06)
[2021-08-05] MEDS: CHOLECALCIFEROL 5,000 UNIT TABLET PO SCH (10:07)
[2021-08-05] MEDS: hydrALAZINE 10 MG TABLET PO SCH (10:07)
[2021-08-05] MEDS: CALCIUM (CARBONATE)/VITAMIN D 600 MG-400 UNIT TABLET PO SCH (10:09)
[2021-08-05] MEDS: NYSTATIN CREAM 15 GM TUBE TOP SCH (10:10)
[2021-08-05] MEDS: ZINC OXIDE PASTE 113 GM TUBE TOP SCH (10:10)
[2021-08-05] MEDS: DESITIN 4OZ/NYSTATIN 15 GRAM MIXTURE PASTE TOP SCH (10:10)
[2021-08-05] MEDS: SODIUM BICARBONATE 650 MG TABLET PO SCH (10:10)
[2021-08-05 11:29] VITALS: BP 135/84
== END 2021-08-05 12:45 | DRG 871 ==
LOC: EDBD → EDUNIT# → N.ED 20:22 → N.EDINP 22:50 → SUATTDRO 22:50 → N.ICU 07-25 06:15 → N.EDINP 07-25 06:27 → N.ICU 07-25 06:28 → N.TELEN 07-27 22:49
PROVIDERS: ADMIT Family Medicine; ATTEND Family Medicine